=== PATIENT | female | born 1985 | race Caucasian/White ===

== ENCOUNTER → 2017-05-20 | Outpatient (CLI) | payer OTHER ==
[2017-05-20 10:29] LABS: Basophils % (A) 0 %; CH 28.7; CHCM 31.2; Eosinophils # (A) 0.4 k/uL (0-0.7); Eosinophils % (A) 5 %; HCT 38.2 % (34.0-46.0); HDW 2.22; HGB 11.9 gm/dL (11.4-16.0); Luc # (Auto) 0.17; Luc % (Auto) 2; Lymphocytes # (A) 1.4 k/uL (1.0-4.8); Lymphocytes % (A) 17 %; MCH 28.9 pg (25.0-35.0); MCHC 31.2 g/dL (31.0-37.0); MCV 92.5 fL (80.0-100.0); Monocytes # (A) 0.4 k/uL (0-1.0); Monocytes % (A) 4 %; Neutrophils # (A) 6.1 k/uL (1.3-7.7); Neutrophils % (A) 72 %; RBC 4.13 m/uL (3.80-5.40); RDW 13.1 % (11.5-15.5); WBC 8.5 k/uL (3.8-10.6); WBC (Perox) 8.95
[2017-05-20 10:34] LABS: INR 0.9 (<1.2); Prothrombin Time 9.6 sec (9.0-12.0)
[2017-05-20 10:44] LABS: Bilirubin, Delta 0.2 mg/dL (0.0-0.2); Total Bilirubin 0.3 mg/dL (0.2-1.3); Total Protein 6.9 g/dL (6.3-8.2)
--- NOTE | 2017-05-20 11:55 | US ---
EXAMINATION TYPE: US liver DATE OF EXAM: 05/20/2017 COMPARISON: 09/14/2009 CLINICAL HISTORY: B18.2 Chronic Hepatitis C. EXAM MEASUREMENTS: Liver Length: 19.1 cm Gallbladder Wall: Surgically absent cm CBD: 0.8 cm Right Kidney: 11.4 x 4.1 x 5.2 cm Pancreas: Obscured by bowel gas Liver: Heterogeneous in coarsened, enlarged Gallbladder: Surgically absent Evidence for sonographic Puentes's sign: No CBD: wnl for surgically absent gallbladder Right Kidney: No hydronephrosis or masses seen IMPRESSION: Coarsened heterogenous hepatic echotexture compatible with patient's underlying known hep atocellular disease. This limits evaluation for hepatic masses although no gross hepatic masses ident ified. Surveillance MRI could also be considered in this high-risk patient.
[2017-05-22 16:28] LABS: LOG HCV IU/mL 5.01 (<1.08)
== END | disposition home or self-care (01) ==
LOC: RADUSWWP 09:16
PROVIDERS: ATTEND Family Medicine
DX: B18.2 Chronic viral hepatitis C (principal)
CPT/HCPCS: 36415; 76705; 80076; 85025; 85610; 87522

== ENCOUNTER → 2017-06-23 | Outpatient (CLI) | payer OTHER | END | disposition home or self-care (01) | LOC: RADMRIMAIN 11:46 | PROVIDERS: ATTEND Physician Assistant | DX: Z53.9 Procedure and treatment not carried out, unspecified reason (principal) ==

== ENCOUNTER → 2017-10-08 | Outpatient (CLI) | payer OTHER ==
[2017-10-08 11:29] LABS: Blood Urea Nitrogen 19 mg/dL (7-17)
== END | disposition home or self-care (01) ==
LOC: LABWHC1 10:28
PROVIDERS: ATTEND Physician Assistant
DX: B18.2 Chronic viral hepatitis C (principal)
CPT/HCPCS: 36415; 82565; 84520; 87522

== ENCOUNTER → 2017-10-28 | Outpatient (CLI) | payer OTHER ==
[2017-10-28 15:24] LABS: Prothrombin Time 9.9 sec (9.0-12.0)
[2017-10-28 15:34] LABS: Albumin 3.8 g/dL (3.5-5.0); Total Bilirubin 0.4 mg/dL (0.2-1.3)
[2017-10-28 20:52] LABS: HIV AB P24 Non-Reactive (Non-Reactive); HIV P24 AG Non-Reactive (Non-Reactive)
[2017-10-29 13:51] LABS: Serum Amphetamine Negative; Serum Barbiturates Negative; Serum Benzodiazepine Negative; Serum Cocaine Negative; Serum Methadone Positive; Serum Opiates Negative; Serum Phencyclidine Negative; Serum Propoxyphene Negative; Serum THC (Cannabis) Negative
== END | disposition home or self-care (01) ==
LOC: LABWHC1 13:52
PROVIDERS: ATTEND Physician Assistant
DX: B18.2 Chronic viral hepatitis C (principal)
CPT/HCPCS: 36415; 80307; 82040; 82247; 85610; 87390

== ENCOUNTER → 2017-11-30 | Outpatient (CLI) | payer OTHER ==
[2017-11-30 10:21] LABS: Basophils % (A) 0 %; Eosinophils # (A) 0.2 k/uL (0-0.7); Eosinophils % (A) 3 %; HCT 37.3 % (34.0-46.0); HGB 11.9 gm/dL (11.4-16.0); Lymphocytes # (A) 1.3 k/uL (1.0-4.8); Lymphocytes % (A) 18 %; MCV 90.5 fL (80.0-100.0); Mean Platelet Volume 8.2; Monocytes # (A) 0.4 k/uL (0-1.0); Monocytes % (A) 6 %; Neutrophils # (A) 5.4 k/uL (1.3-7.7); Neutrophils % (A) 71 %; Platelet Count 188 k/uL (150-450); RBC 4.12 m/uL (3.80-5.40); RDW 13.4 % (11.5-15.5); WBC 7.6 k/uL (3.8-10.6)
[2017-11-30 10:39] LABS: ALT 63 U/L (9-52); AST 38 U/L (14-36); Albumin 3.9 g/dL (3.5-5.0); Alkaline Phosphatase 77 U/L (38-126); Anion Gap 13 mmol/L; Blood Urea Nitrogen 18 mg/dL (7-17); Calcium 9.2 mg/dL (8.4-10.2); Carbon Dioxide 24 mmol/L (22-30); Chloride 105 mmol/L (98-107); Glucose 99 mg/dL (74-99); Potassium 4.3 mmol/L (3.5-5.1); Sodium 142 mmol/L (137-145); Total Bilirubin 1.1 mg/dL (0.2-1.3); Total Protein 6.8 g/dL (6.3-8.2)
== END | disposition home or self-care (01) ==
LOC: LABWHC1 09:34
PROVIDERS: ATTEND Physician Assistant
DX: B19.20 Unspecified viral hepatitis C without hepatic coma (principal)
CPT/HCPCS: 36415; 80053; 85025

== ENCOUNTER 2017-12-31 10:16 | Observation (INO) | payer OTHER ==
[2017-12-31] MEDS ORDERED: KETOROLAC 30 MG/ML 1 ML VIAL IVP STA (10:55)
[2017-12-31] MEDS ORDERED: IPRATROPIUM-ALBUTEROL 3 ML NEB INHALATION STA (10:55)
[2017-12-31] MEDS ORDERED: ORPHENADRINE 30 MG/ML 2 ML VIAL IVP STA (10:55)
--- NOTE | 2017-12-31 11:00 | ED ---
URI HPI - General Source: patient, RN notes reviewed Mode of arrival: ambulatory Limitations: no limitations <Ever Waite - Last Filed: 12/31/17 13:05> <Tulio Jarrett - Last Filed: 12/31/17 13:39> - General Chief Complaint: Upper Respiratory Infection Stated Complaint: pneumonia dx from [facility] Time Seen by Provider: 12/31/17 10:50 - History of Present Illness Initial Comments: This is a 32-year-old female presents emergency Department chief complaint of cough congestion and back pain. Patient states that she was told she had pneumonia 2 days ago and was diagnosed at [facility]. She has taken her second dose of azithromycin today. States the pain in her back is worse with deep inspiration and she feels short of breath. Patient does admit that she is a former IV drug user and states that she has been clean for one year and is currently tapering off methadone. Patient denies any recent illicit drug use. Denies any current fever states that she has had subjective fevers. She also had some chills at home. Patient denies sore throat, headache , dizziness. Patient states the pain in her back is worse with movement. (Ever Waite) - Related Data Home Medications Medication Instructions Recorded Confirmed Acetaminophen Tab [Tylenol Tab] 500 mg PO Q4H PRN 12/31/17 12/31/17 Azithromycin [Zithromax Z-pack] See Taper PO DIRECTED 12/31/17 12/31/17 Ibuprofen [Motrin Ib] 800 mg PO Q4H PRN 12/31/17 12/31/17 Methadone [Dolophine] 5 mg PO DAILY 12/31/17 12/31/17 buPROPion HCL [Wellbutrin XL] 300 mg PO DAILY 12/31/17 12/31/17 Allergies Allergy/AdvReac Type Severity Reaction Status Date / Time No Known Allergies Allergy Verified 12/31/17 11:02 Review of Systems ROS Other: All systems not noted in ROS Statement are negative. <Ever Waite - Last Filed: 12/31/17 13:05> ROS Other: All systems not noted in ROS Statement are negative. <Tulio Jarrett - Last Filed: 12/31/17 13:39> ROS Statement: Those systems with pertinent positive or pertinent negative responses have been documented in the HPI. Past Medical History Past Medical History: No Reported History History of Any Multi-Drug Resistant Organisms: None Reported Past Surgical History: Appendectomy, Section, Cholecystectomy Past Psychological History: Depression Smoking Status: Never smoker Past Alcohol Use History: None Reported Past Drug Use History: None Reported, Heroin, Methamphetamine <Ever Waite - Last Filed: 12/31/17 13:05> General Exam Limitations: no limitations General appearance: alert, in no apparent distress Head exam: Present: atraumatic, normocephalic, normal inspection Eye exam: Present: normal appearance, PERRL, EOMI. Absent: scleral icterus, conjunctival injection, periorbital swelling ENT exam: Present: mucous membranes moist, TM's normal bilaterally, normal external ear exam. Absent: normal oropharynx (Few missing dentition noted) Neck exam: Present: normal inspection, full ROM. Absent: tenderness, meningismus, lymphadenopathy Respiratory exam: Present: wheezes, chest wall tenderness (Posterior aspect upper thoracic). Absent: normal lung sounds bilaterally, respiratory distress, rales, rhonchi, stridor Cardiovascular Exam: Present: regular rate, normal rhythm, normal heart sounds. Absent: systolic murmur, diastolic murmur, rubs, gallop, clicks Skin exam: Present: warm, dry, intact, normal color. Absent: rash <Ever Waite - Last Filed: 12/31/17 13:05> Course <Ever Waite - Last Filed: 12/31/17 13:05> <Tulio Jarrett - Last Filed: 12/31/17 13:39> Vital Signs 12/31/17 12/31/17 12/31/17 10:43 12:05 12:18 Temperature 98.2 F Pulse Rate 101 H 100 100 Respiratory 18 Rate Blood Pressure 121/69 O2 Sat by Pulse 96 Oximetry 12/31/17 12:19 Temperature Pulse Rate Respiratory 22 Rate Blood Pressure O2 Sat by Pulse Oximetry - Reevaluation(s) Reevaluation #1: 12/31/17 13:39 PA supervision I personally saw the patient examine the patient. I reviewed and agree with the PA findings including all diagnostic interpretations and treatment plans as written and less otherwise stated. A did discuss case with Dr. Underwood who is the covering physician. (Tulio Jarrett) Medical Decision Making - Lab Data Result diagrams: 12/31/17 11:30 12/31/17 11:30 <Ever Waite - Last Filed: 12/31/17 13:05> - Lab Data Result diagrams: 12/31/17 11:30 12/31/17 11:30 <Tulio Jarrett - Last Filed: 12/31/17 13:39> - Lab Data Lab Results 12/31/17 12/31/17 12/31/17 Range/Units 11:30 11:30 11:30 WBC 11.4 H (3.8-10.6) k/uL RBC 3.69 L (3.80-5.40) m/uL Hgb 10.7 L (11.4-16.0) gm/dL Hct 32.8 L (34.0-46.0) % MCV 89.1 (80.0-100.0) fL MCH 28.9 (25.0-35.0) pg MCHC 32.5 (31.0-37.0) g/dL RDW 13.0 (11.5-15.5) % Plt Count 203 (150-450) k/uL Neutrophils % 79 % Lymphocytes % 14 % Monocytes % 4 % Eosinophils % 2 % Basophils % 0 % Neutrophils # 9.0 H (1.3-7.7) k/uL Lymphocytes # 1.5 (1.0-4.8) k/uL Monocytes # 0.4 (0-1.0) k/uL Eosinophils # 0.3 (0-0.7) k/uL Basophils # 0.0 (0-0.2) k/uL D-Dimer 1.19 H (<0.60) mg/L FEU Sodium 139 (137-145) mmol/L Potassium 3.7 (3.5-5.1) mmol/L Chloride 103 (98-107) mmol/L Carbon Dioxide 24 (22-30) mmol/L Anion Gap 12 mmol/L BUN 12 (7-17) mg/dL Creatinine 0.64 (0.52-1.04) mg/dL Est GFR (CKD-EPI)AfAm >90 (>60 ml/min/1.73 sqM) Est GFR (CKD-EPI)NonAf >90 (>60 ml/min/1.73 sqM) Glucose 131 H (74-99) mg/dL Calcium 8.5 (8.4-10.2) mg/dL Total Bilirubin 0.3 (0.2-1.3) mg/dL AST 20 (14-36) U/L ALT 31 (9-52) U/L Alkaline Phosphatase 76 (38-126) U/L Total Protein 6.2 L (6.3-8.2) g/dL Albumin 3.2 L (3.5-5.0) g/dL Disposition <Ever Waite - Last Filed: 12/31/17 13:05> <Tulio Jarrett - Last Filed: 12/31/17 13:39> Clinical Impression: Multifocal pneumonia, Failure of outpatient treatment Disposition: ADMITTED IP TO THIS HOSP Condition: Stable Referrals: Ta Colon MD [Primary Care Provider] - 1-2 days
[2017-12-31 11:50] LABS: Basophils % (A) 0 %; Eosinophils # (A) 0.3 k/uL (0-0.7); Eosinophils % (A) 2 %; HCT 32.8 % (34.0-46.0); HGB 10.7 gm/dL (11.4-16.0); Lymphocytes # (A) 1.5 k/uL (1.0-4.8); Lymphocytes % (A) 14 %; MCH 28.9 pg (25.0-35.0); MCHC 32.5 g/dL (31.0-37.0); MCV 89.1 fL (80.0-100.0); Monocytes # (A) 0.4 k/uL (0-1.0); Monocytes % (A) 4 %; Neutrophils % (A) 79 %; Platelet Count 203 k/uL (150-450); RBC 3.69 m/uL (3.80-5.40); WBC 11.4 k/uL (3.8-10.6)
--- NOTE | 2017-12-31 12:01 | XR ---
EXAMINATION TYPE: XR chest 2V DATE OF EXAM: 12/31/2017 COMPARISON: None HISTORY: 32-year-old female with cough and pain TECHNIQUE: PA and lateral views FINDINGS: Heart normal size. Aorta and pulmonary vasculature within normal limits. Focal airspace opacity in th e posterior basilar left lower lobe. A trace pleural effusion may also be present. IMPRESSION: Focal airspace disease basilar left lower lobe. Findings suggest pneumonia with trace parapneumonic e ffusion.
[2017-12-31 12:03] LABS: ALT 31 U/L (9-52); AST 20 U/L (14-36); Albumin 3.2 g/dL (3.5-5.0); Alkaline Phosphatase 76 U/L (38-126); Anion Gap 12 mmol/L; Blood Urea Nitrogen 12 mg/dL (7-17); Calcium 8.5 mg/dL (8.4-10.2); Carbon Dioxide 24 mmol/L (22-30); Chloride 103 mmol/L (98-107); Glucose 131 mg/dL (74-99); Potassium 3.7 mmol/L (3.5-5.1); Sodium 139 mmol/L (137-145); Total Bilirubin 0.3 mg/dL (0.2-1.3); Total Protein 6.2 g/dL (6.3-8.2)
--- NOTE | 2017-12-31 12:51 | CT ---
EXAMINATION TYPE: CT angio chest DATE OF EXAM: 12/31/2017 COMPARISON: NONE HISTORY: Upper back pain with cough and shortness of breath CT DLP: 569.2 mGycm. Automated Exposure Control for Dose Reduction was Utilized. CONTRAST: CTA scan of the thorax is performed with IV Contrast, patient injected with 85 mL of Isovue 370, pulm onary embolism protocol. MIP Images are created on CT scanner and reviewed. FINDINGS: LUNGS: Multifocal consolidations are seen within the lingula and left lower lobe demonstrates air bro nchograms as well as to a lesser degree within the right middle lobe. Trace parapneumonic effusion is seen on the left. The lungs are grossly clear, there is no concerning parenchymal mass or nodule elle ntified. There is no pleural effusion or pneumothorax seen. The tracheobronchial tree is patent. MEDIASTINUM: There is suboptimal enhancement of the pulmonary artery and its branches, there is no CT evidence for central pulmonary embolism. There are no greater than 1 cm hilar or mediastinal lymph nodes. No cardiomegaly or pericardial effusion is seen. Within the superior anterior mediastinum th ere is patchy soft tissue attenuation favored to relate to residual fibrous. Prominent mediastinal ly mph nodes are noted measuring up to 9 mm in the right paratracheal space and 1.4 cm in the subcarinal space, possibly reactive given the lung findings. OTHER: Spleen is enlarged in anterior posterior dimension measuring 1.5 cm. Gallbladder surgically ab sent. Within the upper abdomen there is questioned central mesenteric adenopathy versus approximating loops of unopacified small bowel. Further evaluation with CT abdomen after administration of oral co ntrast is recommended. Gallbladder surgically absent.. IMPRESSION: 1. Suboptimal enhancement of the main pulmonary artery however no central pulmonary embolus is seen. Other findings are most compatible with multifocal pneumonia predominating within the left lower lobe but also seen within the lingula and right middle lobe with small left basilar parapneumonic effusio n and prominent mediastinal lymph nodes, likely reactive. 2. Splenomegaly and concern for central mesenteric adenopathy although soft tissue density could rela te to unopacified loops of small bowel and therefore further evaluation with CT abdomen after the adm inistration oral contrast is recommended on a nonemergent basis. The superior mediastinal probable th ymic tissue could be reevaluated if adenopathy is confirmed identified within the abdomen.
[2017-12-31] MEDS ORDERED: cefTRIAXone IN SWFI 1,000 MG/10 ML SYRINGE IVP STA (13:06)
[2017-12-31] MEDS ORDERED: IPRATROPIUM-ALBUTEROL 3 ML NEB INHALATION PRN ×2 (13:06→14:44)
[2017-12-31] MEDS ORDERED: PNEUMONIA PROTOCOL UTILIZED 1 EACH MISC PO PRN (13:06)
[2017-12-31] MEDS ORDERED: AZITHROMYCIN 500 MG in DEXTROSE 5% IN WATER 250 ML IVPB SCH ×2 (14:00)
[2017-12-31] MEDS ORDERED: AZITHROMYCIN 500 MG in SODIUM CHLORIDE 0.9% 250 ML IVPB SCH (14:00)
--- NOTE | 2017-12-31 14:43 | P.CNPUL ---
History of Present Illness Consult date: 12/31/17 Reason for consult: dyspnea, cough, chest pain, pneumonia, abnormal CXR/CT Chief complaint: Shortness of breath, chest pain, fever, pneumonia History of present illness: Consult dated 12/31/2017 This is a 32-year-old female who presents to the emergency department with complaints of a couple days worth of cough congestion shortness of breath. She has pleuritic-type chest pain in the left back and left shoulder area. She's coughing producing some yellow green phlegm. Also had a fever. Very short of breath. The patient apparently was seen recently and briefly at the emergency room at [facility]. Anyway, apparently she was given some antibiotics and sent on her weight. She states that they thought she was here primarily for drug-seeking behavior. She does have a history of drug abuse and currently is undergoing at the proximal location at [place]. Anyway, she states that the chest pain shortness breath chest congestion coughing and fever and phlegm production got so bad that she had to stop back into the emergency room to be evaluated here. Here she is admitted with a diagnosis of bilateral pneumonia predominantly left-sided breast on the right side as well. The patient is having pleuritic in nature as pneumonia abuts the pleural surface. She has no other significant medical history other than drug abuse. She's had appendectomy and cholecystectomy. Her home medications included primarily Tylenol Zithromax in the form of Z-Thaddeus Motrin methadone and Wellbutrin XL. She has no ALLERGIES. Review of Systems A 12 point review of systems is positive for shortness of breath chest congestion cough pleuritic chest pain phlegm production and fever. Past Medical History Past Medical History: No Reported History History of Any Multi-Drug Resistant Organisms: None Reported Past Surgical History: Appendectomy, Section, Cholecystectomy Past Psychological History: Depression Smoking Status: Never smoker Past Alcohol Use History: None Reported Past Drug Use History: None Reported, Heroin, Methamphetamine Medications and Allergies Home Medications Medication Instructions Recorded Confirmed Type Acetaminophen Tab [Tylenol Tab] 500 mg PO Q4H PRN 12/31/17 12/31/17 History Azithromycin [Zithromax Z-pack] See Taper PO DIRECTED 12/31/17 12/31/17 History Ibuprofen [Motrin Ib] 800 mg PO Q4H PRN 12/31/17 12/31/17 History Methadone [Dolophine] 5 mg PO DAILY 12/31/17 12/31/17 History buPROPion HCL [Wellbutrin XL] 300 mg PO DAILY 12/31/17 12/31/17 History Allergies Allergy/AdvReac Type Severity Reaction Status Date / Time No Known Allergies Allergy Verified 12/31/17 14:19 Physical Exam Osteopathic Statement: *. No significant issues noted on an osteopathic structural exam other than those noted in the History and Physical/Consult. Vitals: Vital Signs Temp Pulse Resp BP Pulse Ox 12/31/17 13:59 98.1 F 103 H 20 126/77 97 12/31/17 12:19 22 12/31/17 12:18 100 12/31/17 12:05 100 12/31/17 10:43 98.2 F 101 H 18 121/69 96 Intake and Output 12/30/17 12/31/17 12/31/17 22:59 06:59 14:59 Other: Weight 117.934 kg No acute distress, oriented 3. HEENT examination is grossly unremarkable. Mucous membranes are moist. No oral lesions. Neck supple. Full range of motion. No adenopathy thyromegaly or neck vein distention. Cardiovascular examination reveals regular rhythm rate. S1-S2 normal. No S3 or S4. No discernible murmur noted. Lungs reveal a few scattered rhonchi. Breath sounds are actually quite good. No wheezes. No crackles. Breath sounds equal bilaterally. Abdomen soft bowel sounds are heard. No masses or tenderness. Extremities are intact. No cyanosis clubbing or edema. Skin is without rash or lesion. Neurologic examination is brief but nonfocal. Results - Laboratory Findings CBC and BMP: 12/31/17 11:30 12/31/17 11:30 PT/INR, D-dimer D-Dimer 1.19 mg/L FEU (<0.60) H 12/31/17 11:30 Abnormal lab findings: Abnormal Labs 12/31/17 12/31/17 12/31/17 11:30 11:30 11:30 WBC 11.4 H RBC 3.69 L Hgb 10.7 L Hct 32.8 L Neutrophils # 9.0 H D-Dimer 1.19 H Glucose 131 H Total Protein 6.2 L Albumin 3.2 L - Diagnostic Findings Chest x-ray: report reviewed, image reviewed CT scan - chest: report reviewed (Chest x-ray labs medications and computed tomography scan are all reviewed.), image reviewed Assessment and Plan Assessment: Assessment Bilateral pneumonia left greater than right, community-acquired History of drug abuse, currently undergoing detoxification at [place] History of depression Plan: Plan dated 12/31/2017 The patient should be placed on breathing treatments the form of DuoNeb 4 times a day and when necessary. She does not need any steroids. She's also get standard community-acquired pneumonia antibiotics in form of Rocephin and Zithromax. Additional recommendations and suggestions are forthcoming. We'll follow closely. Repeat x-ray in a day or 2 Time with Patient: Greater than 30
[2017-12-31] MEDS: IPRATROPIUM-ALBUTEROL 3 ML NEB INHALATION SCH ×2 (16:55→21:11)
[2017-12-31] MEDS: KETOROLAC 30 MG/ML 1 ML VIAL IVP PRN (17:34)
[2017-12-31] MEDS ORDERED: ACETAMINOPHEN TAB 500 MG TAB PO PRN (22:09)
[2017-12-31] MEDS ORDERED: IBUPROFEN 800 MG TAB PO PRN (22:09)
--- NOTE | 2017-12-31 23:02 | HP ---
HISTORY AND PHYSICAL DATE OF ADMISSION: 12/31/2017 PRESENTING COMPLAINT: Cough, sputum. HISTORY OF PRESENTING COMPLAINT: This is a pleasant 32-year-old patient of Dr. Colon. Patient has a diagnosis of hepatitis C and is supposed to start treatment by [facility] out of Dr. Munoz's office. She also has takes medicine for depression. Patient used to be an IV heroin user and did methamphetamines; stopped in 2017. Patient then went to a methadone clinic and is down to 5 mg. Patient's last dose of methadone is actually tomorrow. Patient also stopped smoking about 6 months ago. Patient presents with 5 days of increasing cough, sputum production which is green-yellow in color, fever and chills. She feels rather sick, tired and rundown. Chest x-ray and CT scan in the ER did show pneumonia, for which patient was started on IV ceftriaxone and Zithromax. Patient's two kids at home were also sick, as well as her . Patient was seen by Dr. Martin, who started her also on bronchodilators. REVIEW OF SYSTEMS: CONSTITUTIONAL: Tired, febrile, chills. HEENT: As above. RESPIRATORY: As above. CARDIOVASCULAR: None. GASTROINTESTINAL: None. GENITOURINARY: None. MUSCULOSKELETAL: None. DERMATOLOGICAL: Tattoos. HEMATOLOGICAL: None. LYMPHATICS: None. PSYCHIATRY: Depression and anxiety, controlled. NEUROLOGICAL: None. PAST MEDICAL HISTORY: 1. Hepatitis C from IV drug use. 2. Depression. PAST SURGICAL HISTORY: 1. Appendectomy. 2. . 3. Cholecystectomy. SOCIAL HISTORY: Patient lives with her fiance and 3 kids. Stopped smoking about 6 months ago; smoked for about 15 years. Stopped doing IV heroin last year and also methamphetamine last year. FAMILY HISTORY: COPD, cervical cancer. HOME MEDICATIONS: 1. Wellbutrin XL 300 mg a day. 2. Methadone 5 mg a day, to be stopped tomorrow. 3. Motrin 800 mg q.8 p.r.n. 4. Zithromax. 5. Tylenol 500 mg q.4 p.r.n. ALLERGIES: NONE. PHYSICAL EXAMINATION: VITAL SIGNS ON PRESENTATION: Temperature 98.2, pulse 101, respiration 18, blood pressure 121/69, pulse ox 96% on room air. GENERAL APPEARANCE: Well built, BMI 38.4. Lying in bed. Bouts of coughing. EYES: Pupils equal. Conjunctivae normal. HEENT: External appearance of nose and ears normal. Oral cavity normal. NECK: JVD not raised. Mass not palpable. RESPIRATORY: Effort increased. LUNGS: Some expiratory wheezing. CARDIOVASCULAR: First and second sounds normal. No edema. ABDOMEN: Soft, nontender. Liver and spleen not palpable. LYMPHATIC: No lymph node palpable in neck or axillae. PSYCHIATRY: Alert and oriented x3. Mood and affect normal. NEUROLOGICAL: Pupils equal. Cranial nerves grossly intact. Power and sensation grossly intact. DERMATOLOGICAL: Multiple tattoos. INVESTIGATIONS: White count 11.4, hemoglobin 10.7. Potassium 3.7. BUN and creatinine are normal. Chest x-ray shows some infiltrate. Chest CTA showing evidence of multifocal pneumonia and splenomegaly. ASSESSMENT: 1. Bilateral multifocal pneumonia. 2. Acute bronchospasm in a patient who stopped smoking about 6 months ago. 3. Obesity with body mass index of 38.4. 4. Depression not otherwise specified. 5. Next hepatitis C. The patient is going to start anti-retroviral shortly under the auspices of [facility]. PLAN: The patient is on IV ceftriaxone, Zithromax and DuoNeb. Home medication will be resumed. Methadone will now be discontinued. Will give Lovenox for DVT prophylaxis. The patient should see a dietitian for weight loss measures. Will also give IV fluids. Patient is rather tired and rundown. Care was discussed with the patient. Questions were answered. MMPORFIRIOL / TOMERN: [id number] /
[2017-12-31] MEDS: LACTATED RINGERS 1,000 ML IV SCH (23:59)
[2018-01-01 06:22] LABS: Basophils % (A) 0 %; Eosinophils # (A) 0.2 k/uL (0-0.7); Eosinophils % (A) 3 %; HCT 32.7 % (34.0-46.0); HGB 10.3 gm/dL (11.4-16.0); Lymphocytes # (A) 1.3 k/uL (1.0-4.8); Lymphocytes % (A) 16 %; MCH 28.4 pg (25.0-35.0); MCHC 31.6 g/dL (31.0-37.0); Mean Platelet Volume 7.5; Monocytes # (A) 0.4 k/uL (0-1.0); Monocytes % (A) 5 %; Neutrophils # (A) 6.2 k/uL (1.3-7.7); Neutrophils % (A) 75 %; Platelet Count 235 k/uL (150-450); RBC 3.63 m/uL (3.80-5.40); RDW 13.2 % (11.5-15.5); WBC 8.2 k/uL (3.8-10.6)
[2018-01-01 06:29] LABS: Anion Gap 11 mmol/L; Blood Urea Nitrogen 12 mg/dL (7-17); Calcium 8.4 mg/dL (8.4-10.2); Carbon Dioxide 26 mmol/L (22-30); Chloride 102 mmol/L (98-107); Glucose 86 mg/dL (74-99); Potassium 4.6 mmol/L (3.5-5.1); Sodium 139 mmol/L (137-145)
[2018-01-01] MEDS: LACTATED RINGERS 1,000 ML IV SCH ×2 (07:05→17:10)
[2018-01-01] MEDS: KETOROLAC 30 MG/ML 1 ML VIAL IVP PRN ×3 (07:40→21:54)
--- NOTE | 2018-01-01 07:58 | XR ---
EXAMINATION TYPE: XR chest 2V DATE OF EXAM: 01/01/2018 COMPARISON: Prior chest x-ray 12/31/2017 HISTORY: Pneumonia TECHNIQUE: Frontal and lateral views of the chest are obtained. FINDINGS: Airspace disease persists in the left lower lobe. No evident pneumothorax or sizable effus ion. Heart size is stable. IMPRESSION: Findings compatible with patient's history of left lower lobe, lingular pneumonia.
[2018-01-01] MEDS ORDERED: AZITHROMYCIN 500 MG in DEXTROSE 5% IN WATER 250 ML IVPB SCH ×2 (09:00)
[2018-01-01] MEDS: IPRATROPIUM-ALBUTEROL 3 ML NEB INHALATION SCH ×4 (09:17→19:06)
[2018-01-01] MEDS: buPROPion XL 300 MG TAB.ER.24H PO SCH (09:26)
[2018-01-01] MEDS: cefTRIAXone IN SWFI 1,000 MG/10 ML SYRINGE IVP SCH (09:28)
[2018-01-01] MEDS: ENOXAPARIN 40 MG/0.4 ML SYRINGE SQ SCH (09:28)
--- NOTE | 2018-01-01 12:03 | P.PN ---
Subjective Progress Note Date: 01/01/18 Principal diagnosis: Bilateral pneumonia left greater than right, community-acquired Consult dated 12/31/2017 This is a 32-year-old female who presents to the emergency department with complaints of a couple days worth of cough congestion shortness of breath. She has pleuritic-type chest pain in the left back and left shoulder area. She's coughing producing some yellow green phlegm. Also had a fever. Very short of breath. The patient apparently was seen recently and briefly at the emergency room at [facility]. Anyway, apparently she was given some antibiotics and sent on her weight. She states that they thought she was here primarily for drug-seeking behavior. She does have a history of drug abuse and currently is undergoing at the proximal location at [place]. Anyway, she states that the chest pain shortness breath chest congestion coughing and fever and phlegm production got so bad that she had to stop back into the emergency room to be evaluated here. Here she is admitted with a diagnosis of bilateral pneumonia predominantly left-sided breast on the right side as well. The patient is having pleuritic in nature as pneumonia abuts the pleural surface. She has no other significant medical history other than drug abuse. She's had appendectomy and cholecystectomy. Her home medications included primarily Tylenol Zithromax in the form of Z-Thaddeus Motrin methadone and Wellbutrin XL. She has no ALLERGIES. Progress note dated 01/01/2018 The patient is seen again today in follow-up on the pediatric unit. She is currently resting quite comfortably in bed. She is breathing quite a bit easier today as compared to yesterday. The left-sided chest pain on inhalation has improved as well. She is currently afebrile. Maintaining good O2 saturations in the upper 90s on room air. Hemodynamically stable. White count 8.2. She remains on antibiotics in the form of ceftriaxone and azithromycin. Objective - Vital Signs Vital signs: Vital Signs Temp 97.8 F 01/01/18 10:24 Pulse 72 01/01/18 10:24 Resp 16 01/01/18 10:24 BP 102/67 01/01/18 10:24 Pulse Ox 98 01/01/18 10:24 Intake & Output 12/31/17 01/01/18 01/01/18 18:59 06:59 18:59 Intake Total 800 Balance 800 Weight 117.934 kg Intake: Oral 800 Other: Voiding Method Toilet # Voids 1 1 1 - Exam No acute distress, oriented 3. HEENT examination is grossly unremarkable. Mucous membranes are moist. No oral lesions. Neck supple. Full range of motion. No adenopathy thyromegaly or neck vein distention. Cardiovascular examination reveals regular rhythm rate. S1-S2 normal. No S3 or S4. No discernible murmur noted. Lungs reveal a few scattered rhonchi. Breath sounds are actually quite good. No wheezes. No crackles. Breath sounds equal bilaterally. Abdomen soft bowel sounds are heard. No masses or tenderness. Extremities are intact. No cyanosis clubbing or edema. Skin is without rash or lesion. Neurologic examination is brief but nonfocal. - Labs CBC & Chem 7: 01/01/18 05:53 01/01/18 05:53 Labs: Abnormal Lab Results - Last 24 Hours (Table) 12/31/17 12/31/17 12/31/17 Range/Units 11:30 11:30 11:30 WBC 11.4 H (3.8-10.6) k/uL RBC 3.69 L (3.80-5.40) m/uL Hgb 10.7 L (11.4-16.0) gm/dL Hct 32.8 L (34.0-46.0) % Neutrophils # 9.0 H (1.3-7.7) k/uL D-Dimer 1.19 H (<0.60) mg/L FEU Glucose 131 H (74-99) mg/dL Total Protein 6.2 L (6.3-8.2) g/dL Albumin 3.2 L (3.5-5.0) g/dL 01/01/18 Range/Units 05:53 WBC (3.8-10.6) k/uL RBC 3.63 L (3.80-5.40) m/uL Hgb 10.3 L (11.4-16.0) gm/dL Hct 32.7 L (34.0-46.0) % Neutrophils # (1.3-7.7) k/uL D-Dimer (<0.60) mg/L FEU Glucose (74-99) mg/dL Total Protein (6.3-8.2) g/dL Albumin (3.5-5.0) g/dL Assessment and Plan Assessment: Assessment Bilateral pneumonia left greater than right, community-acquired History of drug abuse, currently undergoing detoxification at [place] History of depression Plan The patient was seen and evaluated by Dr. Martin. She is improved today as compared to yesterday. We'll continue with the current treatment plan. We'll repeat her chest x-ray in the a.m. Probable discharge in the a.m. as well. Will continue to follow. I, the cosigning physician, performed a history & physical examination of the patient. Lungs sounds with few scattered rhonchi more so on the left. Maintaining good O2 saturations in the 90s on room air. I discussed the assessment and plan of care with my nurse practitioner, Miesha Ceja. I attest to the above note as dictated by her.
--- NOTE | 2018-01-01 22:44 | PN ---
PROGRESS NOTE DATE OF SERVICE: 01/01/2018. PRESENTING COMPLAINT: Cough. INTERVAL HISTORY: This patient was admitted with bilateral pneumonia. Breathing is a bit better. Has a cough, still bringing up some sputum. Appetite is getting better. Some pain when she takes a deep breath. REVIEW OF SYSTEMS: Done for constitutional, cardiovascular, GI, pulmonary; relevant findings as above. CURRENT MEDICATIONS: Reviewed, that include Zithromax and ceftriaxone. PHYSICAL EXAMINATION: Temperature 97, pulse 96, respirations 16, blood pressure 109/66, pulse ox 97% on room air. GENERAL APPEARANCE: Sitting up, awake. EYES: Pupils equal. Conjunctivae normal. HEENT: External appearance of nose and ears normal. Oral cavity normal. NECK: JVD not raised. Mass not palpable. Respiratory effort normal. LUNGS: Improved air entry, decreased wheezing. CARDIOVASCULAR: 1st and 2nd sounds normal. No edema. ABDOMEN: Soft, nontender. Liver and spleen not palpable. PSYCHIATRY: Alert and oriented x3. Mood and affect normal. INVESTIGATIONS: White count 8.2, hemoglobin 10.3. Chest x-ray shows infiltrate. ASSESSMENT: 1. Bilateral multifocal pneumonia with significant clinical improvement. 2. Acute bronchospasm. The patient stopped smoking about 6 months ago. 3. Obesity, BMI 38.4. 4. Depression, not otherwise specified. 5. Hepatitis C. The patient will be starting his anti-retroviral shortly. 6. Normocytic anemia, cause unknown. PLAN: Patient is clinically doing much better. Continue the current antibiotics. The patient is encouraged to ambulate, to use IR. Will DC patient's IV fluids as appetite is getting better. MMODL / IJN: [id number] /
[2018-01-02] MEDS: LACTATED RINGERS 1,000 ML IV SCH ×2 (01:45→08:52)
[2018-01-02] MEDS: KETOROLAC 30 MG/ML 1 ML VIAL IVP PRN ×2 (05:27→12:32)
[2018-01-02 06:32] VITALS: RESP 18
--- NOTE | 2018-01-02 06:59 | XR ---
EXAMINATION TYPE: XR chest 1V portable DATE OF EXAM: 01/02/2018 HISTORY: Pneumonia. REFERENCE: Previous study dated 01/01/2018. FINDINGS: The study is quite lordotic. The heart projects as enlarged. There is mild vascular congest ion. There is left basilar airspace disease. This appears unchanged from previous. I suspect a left e ffusion. IMPRESSION: ALLOWING FOR TECHNIQUE, I SEE NO DEFINITE INTERVAL CHANGE IN THE APPEARANCE OF THE CHEST.
[2018-01-02 07:28] LABS: Anion Gap 8 mmol/L; Blood Urea Nitrogen 9 mg/dL (7-17); Calcium 8.5 mg/dL (8.4-10.2); Carbon Dioxide 27 mmol/L (22-30); Chloride 106 mmol/L (98-107); Glucose 88 mg/dL (74-99); Potassium 4.7 mmol/L (3.5-5.1); Sodium 141 mmol/L (137-145)
[2018-01-02] MEDS: buPROPion XL 300 MG TAB.ER.24H PO SCH (08:44)
[2018-01-02] MEDS: ENOXAPARIN 40 MG/0.4 ML SYRINGE SQ SCH (08:44)
[2018-01-02] MEDS: cefTRIAXone IN SWFI 1,000 MG/10 ML SYRINGE IVP SCH (08:44)
[2018-01-02] MEDS ORDERED: AZITHROMYCIN 500 MG TAB PO SCH (09:00)
[2018-01-02] MEDS: IPRATROPIUM-ALBUTEROL 3 ML NEB INHALATION SCH ×2 (09:07→11:13)
--- NOTE | 2018-01-02 10:02 | P.PN ---
Subjective Progress Note Date: 01/02/18 Principal diagnosis: Bilateral pneumonia left greater than right, community-acquired Consult dated 12/31/2017 This is a 32-year-old female who presents to the emergency department with complaints of a couple days worth of cough congestion shortness of breath. She has pleuritic-type chest pain in the left back and left shoulder area. She's coughing producing some yellow green phlegm. Also had a fever. Very short of breath. The patient apparently was seen recently and briefly at the emergency room at [facility]. Anyway, apparently she was given some antibiotics and sent on her weight. She states that they thought she was here primarily for drug-seeking behavior. She does have a history of drug abuse and currently is undergoing at the proximal location at [place]. Anyway, she states that the chest pain shortness breath chest congestion coughing and fever and phlegm production got so bad that she had to stop back into the emergency room to be evaluated here. Here she is admitted with a diagnosis of bilateral pneumonia predominantly left-sided breast on the right side as well. The patient is having pleuritic in nature as pneumonia abuts the pleural surface. She has no other significant medical history other than drug abuse. She's had appendectomy and cholecystectomy. Her home medications included primarily Tylenol Zithromax in the form of Z-Thaddeus Motrin methadone and Wellbutrin XL. She has no ALLERGIES. Progress note dated 01/01/2018 The patient is seen again today in follow-up on the pediatric unit. She is currently resting quite comfortably in bed. She is breathing quite a bit easier today as compared to yesterday. The left-sided chest pain on inhalation has improved as well. She is currently afebrile. Maintaining good O2 saturations in the upper 90s on room air. Hemodynamically stable. White count 8.2. She remains on antibiotics in the form of ceftriaxone and azithromycin. Progress note dated 01/02/2018 Patient is seen again today in follow-up on the pediatric unit. She is currently sitting up in bed. She is awake and alert in no acute distress. She is breathing nearly back to her baseline. Continuing to maintain good O2 saturations in the upper 90s on room air. No worsening cough or congestion. She is anxious to go home. Blood culture reveals no growth. Objective - Vital Signs Vital signs: Vital Signs Temp 97.6 F 01/02/18 06:31 Pulse 78 01/02/18 09:17 Resp 18 01/02/18 06:31 BP 110/75 01/02/18 06:31 Pulse Ox 95 01/02/18 06:31 Intake & Output 01/01/18 01/02/18 01/02/18 18:59 06:59 18:59 Intake Total 1000 Balance 1000 Intake: Oral 1000 Other: Voiding Method Toilet # Voids 1 1 - Exam No acute distress, oriented 3. HEENT examination is grossly unremarkable. Mucous membranes are moist. No oral lesions. Neck supple. Full range of motion. No adenopathy thyromegaly or neck vein distention. Cardiovascular examination reveals regular rhythm rate. S1-S2 normal. No S3 or S4. No discernible murmur noted. Breath sounds are actually quite good. No wheezes. No crackles. Breath sounds equal bilaterally. Abdomen soft bowel sounds are heard. No masses or tenderness. Extremities are intact. No cyanosis clubbing or edema. Skin is without rash or lesion. Neurologic examination is brief but nonfocal. - Labs CBC & Chem 7: 01/01/18 05:53 01/02/18 07:03 Labs: Microbiology - Last 24 Hours (Table) 12/31/17 13:20 Blood Culture - Preliminary Blood No Growth after 24 hours Assessment and Plan Assessment: Assessment Bilateral pneumonia left greater than right, community-acquired History of drug abuse, currently undergoing detoxification at [place] History of depression Plan The patient was seen and evaluated by Dr. Martin. She is cleared for discharge from the pulmonary standpoint. Complete her course of antibiotics in the form of azithromycin. She should follow-up in our office in 1-2 weeks' time. We'll repeat a chest x-ray done. She is however encouraged to call sooner with any recurrence of symptoms or other questions or concerns. I, the cosigning physician, performed a history & physical examination of the patient. Lungs sounds with few scattered rhonchi more so on the left. Maintaining good O2 saturations in the 90s on room air. I discussed the assessment and plan of care with my nurse practitioner, Miesha Ceja. I attest to the above note as dictated by her.
[2018-01-02 12:41] VITALS: BP 101/68; PULSE 102; TEMP 98.2
--- NOTE | 2018-01-03 23:23 | DS ---
DISCHARGE SUMMARY DATE OF ADMISSION: 12/31/2017. DATE OF DISCHARGE: 01/02/2018. FINAL DIAGNOSES: 1. Bilateral multifocal pneumonia. 2. Acute bronchospasm. 3. Obesity BMI 38.4. 4. Depression, not otherwise specified. 5. Hepatitis C. The patient will be starting anti-retroviral shortly. 6. Normocytic anemia, cause unknown. HOSPITAL COURSE: This patient presented with bilateral pneumonia. Responded well to antibiotics. Much improved by the time of discharge. Afebrile. The patient did use to use IV heroin and methamphetamine. The patient was in a methadone clinic and the patient finished the last dose of methadone when she was admitted. On exam, lungs improved air entry. The patient is tolerating a diet, up and about. CONSULTATION: Dr. Martin from Pulmonary. Chest CT negative for PE. DISCHARGE MEDICATIONS: 1. Tylenol 500 mg q.4h p.r.n. 2. Wellbutrin XL 300 mg p.o. daily. 3. Ventolin HFA 1-2 puffs q.6h p.r.n. 4. Ceftin 500 mg p.o. b.i.d. 10 tablets. 5. Motrin 800 mg q8 p.o. p.r.n. 6. Atrovent HFA 2 puffs q.i.d. 7. Mucinex 200 mg p.o. q.12 14 tablets. 8. Prednisone taper. Follow up with Dr. Colon in 3 days. BRYAN / TOMERN: [id number] /
== END 2018-01-02 15:35 | disposition home or self-care (01) ==
LOC: EC 10:16 → 6PED 13:38 → INTOOBSV 13:38 → UNDODISIN 01-02 15:35
PROVIDERS: ADMIT Hospitalist; ATTEND Hospitalist
DX: J18.9 Pneumonia, unspecified organism (principal); B19.20 Unspecified viral hepatitis C without hepatic coma; J98.01 Acute bronchospasm; D64.9 Anemia, unspecified; F11.21 Opioid dependence, in remission; F32.9 Major depressive disorder, single episode, unspecified; F41.9 Anxiety disorder, unspecified; E66.9 Obesity, unspecified; Z68.38 Body mass index [BMI] 38.0-38.9, adult; Z79.899 Other long term (current) drug therapy; Z90.49 Acquired absence of other specified parts of digestive tract; Z87.891 Personal history of nicotine dependence; Z90.89 Acquired absence of other organs; Z82.5 Family history of asthma and other chronic lower respiratory diseases; Z80.49 Family history of malignant neoplasm of other genital organs
CPT/HCPCS: 96372 ×2; 96376 ×3; 96374; 96375; 99285; 36415; 94640 ×6; 85379; 80053; 80048 ×2; 85025 ×2; 87040; 71045; 71046 ×2; 71275; G0378 ×3; J2360; J0456; J1650 ×2; J0696 ×3; J1885 ×3; Q9967

== ENCOUNTER 2021-01-26 16:55 | Emergency (ER) | payer OTHER ==
[2021-01-26 16:59] VITALS: BP 116/74; PULSE 102; RESP 20; TEMP 99
[2021-01-26] MEDS: LIDOCAINE 1%-EPI 1:100,000 20 ML VIAL SQ STA (17:07)
[2021-01-26] MEDS ORDERED: SULFAMETH-TMP DS STARTER PACK 2 TAB BTL PO STA (17:16)
--- NOTE | 2021-01-26 17:20 | ED ---
Skin/Abscess/FB HPI - General Source: patient Mode of arrival: ambulatory Limitations: no limitations <Artemio Webb - Last Filed: 01/26/21 17:16> <Diana Ryan - Last Filed: 01/27/21 17:02> - General Chief complaint: Skin/Abscess/Foreign Body Stated complaint: Boil in armpit Time Seen by Provider: 01/26/21 16:59 - History of Present Illness Initial comments: 35-year-old female with history of abscess present to emergency Department with a chief complaint of a boil on the right armpit. Patient reports a starter last 2 days with gradual increase in severity in size. She reports that she was able to remove some yellow discharge that she was attempted to squeeze it. She does have history of MRSA has taken Bactrim which worked well before. She is known to get abscesses in the right armpit. She denies any fevers or chills. States it is uncomfortable whenever she is moving around. States she attempted not to use any deodorants in the region. (Artemio Webb) - Related Data Home Medications Medication Instructions Recorded Confirmed Acetaminophen Tab [Tylenol] 500 mg PO Q4H PRN 12/31/17 12/31/17 buPROPion HCL [Wellbutrin XL] 300 mg PO DAILY 12/31/17 12/31/17 Previous Rx's Medication Instructions Recorded Albuterol Inhaler (Mhu) [Ventolin 1 - 2 puff INHALATION RT-Q6H PRN 01/02/18 Hfa Inhaler (Mhu)] #1 inhaler Cefuroxime Axetil [Ceftin] 500 mg PO BID #10 tab 01/02/18 Ibuprofen [Motrin Ib] 800 mg PO Q8H PRN #0 01/02/18 Ipratropium [place] [Atrovent Hfa] 2 puff INHALATION QID #1 inhaler 01/02/18 guaiFENesin [Mucinex] 1,200 mg PO Q12HR #14 tablet.er 01/02/18 predniSONE 10 mg PO DAILY #30 tab 01/02/18 Sulfamethox-Tmp 800-160Mg [Bactrim 1 each PO Q12HR #20 tab 01/26/21 Ds] Allergies Allergy/AdvReac Type Severity Reaction Status Date / Time No Known Allergies Allergy Verified 01/26/21 16:59 Review of Systems ROS Other: All systems not noted in ROS Statement are negative. <Artemio Webb - Last Filed: 01/26/21 17:16> ROS Other: All systems not noted in ROS Statement are negative. <Diana Ryan - Last Filed: 01/27/21 17:02> ROS Statement: Those systems with pertinent positive or pertinent negative responses have been documented in the HPI. Past Medical History Past Medical History: Liver Disease Additional Past Medical History / Comment(s): hep C History of Any Multi-Drug Resistant Organisms: None Reported Past Surgical History: Appendectomy, Section, Cholecystectomy Past Psychological History: Depression Past Alcohol Use History: None Reported Past Drug Use History: None Reported, Heroin, Methamphetamine - Past Family History Mother Family Medical History: Cancer, COPD, Hypertension Additional Family Medical History / Comment(s): CERVICAL CANCER Father Family Medical History: COPD, Hypertension <Artemio Webb - Last Filed: 01/26/21 17:16> General Exam Limitations: no limitations General appearance: alert, in no apparent distress, obese Head exam: Present: atraumatic, normocephalic, normal inspection Eye exam: Present: normal appearance, PERRL, EOMI Pupils: Present: normal accommodation ENT exam: Present: normal exam, normal oropharynx, mucous membranes moist Neck exam: Present: normal inspection, full ROM. Absent: tenderness Respiratory exam: Present: normal lung sounds bilaterally. Absent: respiratory distress, wheezes, rales, rhonchi, stridor Cardiovascular Exam: Present: regular rate, normal rhythm, normal heart sounds. Absent: systolic murmur Extremities exam: Present: full ROM, tenderness, normal capillary refill. Absent: normal inspection (Abscess on the right exile up. No discharge noted. Flatulent but no induration.), pedal edema, joint swelling Back exam: Present: normal inspection, full ROM. Absent: tenderness Neurological exam: Present: alert, oriented X3 Psychiatric exam: Present: normal affect, normal mood Skin exam: Present: warm, dry, intact, normal color <Artemio Webb - Last Filed: 01/26/21 17:16> Course Vital Signs 01/26/21 01/26/21 16:57 17:31 Temperature 99.0 F Pulse Rate 102 H Respiratory 20 20 Rate Blood Pressure 116/74 O2 Sat by Pulse 99 95 Oximetry Procedures - Incision & Drainage Consent Obtained: verbal consent Indication: Abscess Site: other (Right axilla) Size (cm): 3 Anesthetic Used: lidocaine 1%, with epi Amount (mLs): 3 I&D Cleaning Method: Alcohol Wipe Sterile Field Used?: No Scalpel Used: #11 Needle Aspiration Performed?: No Irrigation Performed?: No I&D Drainage Obtained: Pus, Blood Culture Obtained?: No Complications: pain, bleeding Patient Tolerated Procedure: well, no complications <Artemio Webb - Last Filed: 01/26/21 17:16> Medical Decision Making <Artemio Webb - Last Filed: 01/26/21 17:16> <Diana Ryan - Last Filed: 01/27/21 17:02> - Medical Decision Making 35-year-old female with history of abscesses presents emergency Department with a chief complaint of an abscess. On physical examination, was able to detect an abscess in the right axilla. We'll start the patient on Bactrim. Incision and drainage performed with approximately 7 mL of purulent discharge removed. No packing was applied. Patient advised to apply warm compresses multiple times per day. Return parameters were thoroughly discussed with patient was understanding and agreeable. Case discussed with physician. (Artemio Webb) I was available for consultation in the emergency department. The history and physical exam were done by the midlevel provider. I was consulted for this patients care. I reviewed the case with the midlevel provider and based on their presentation of the patient, I agree with the assessment, medical decision making and plan of care as documented. Chart was dictated using [employer] dictation software. Attempts were made to correct any dictation errors however some typographical errors may persist. Patient was seen during a national state of emergency due to the Covid-19 pandemic. (Diana Ryan) Disposition Is patient prescribed a controlled substance at d/c from ED?: No Time of Disposition: 17:20 <Artemio Webb - Last Filed: 01/26/21 17:16> <Diana Ryan - Last Filed: 01/27/21 17:02> Clinical Impression: Abscess of right axilla Disposition: HOME SELF-CARE Condition: Stable Instructions (If sedation given, give patient instructions): Abscess (ED), Abscess Incision and Drainage (DC) Additional Instructions: Please return to the Emergency Department if symptoms worsen or any other concerns. Prescriptions: Sulfamethox-Tmp 800-160Mg [Bactrim Ds] 1 each PO Q12HR #20 tab Referrals: Isaac Cooper MD [Primary Care Provider] - 1-2 days
== END 2021-01-26 17:32 | disposition home or self-care (01) ==
LOC: EC 16:55
DX: L02.411 Cutaneous abscess of right axilla (principal); F32.9 Major depressive disorder, single episode, unspecified
CPT/HCPCS: 10060; 99282

== ENCOUNTER → 2023-03-12 | Outpatient (CLI) | payer OTHER ==
[2023-03-12 16:08] VITALS: BP 101/66; PULSE 81; RESP 16; TEMP 98.1; BMI 42.0
--- NOTE | 2023-03-12 16:33 | P.HPBAR ---
Bariatric H&P - History & Physicial H&P Date: 03/12/23 History & Physicial: Visit/CC: Initial Patient initial contact: Initial weight: 2.481 kg Initial weight in pounds: 5.47 Height: 5 ft 7.5 in Initial BMI: 0.8 Last weight: Current weight: 123.632 kg Current weight in pounds: 272.56 Current BMI: 42.0 [place] body weight (based on NIH guidelines): 62.369 kg Excess body weight loss: The patient is a 37 year-old F who presents for Bariatric Assessment. Patient here today to discuss bariatric surgery options. Her father had LAP-BAND and later converted to sleeve gastrectomy. Her sister had lap band. Patient is interested in laparoscopic sleeve gastrectomy at this time. BMI 42. No tobacco use. Patient with complaints of GERD. Denies history of DVT or dysphagia. Surgical history includes , laparoscopic cholecystectomy, open appendectomy. Review of Systems The patient denies any acute changes in vision or hearing, no dysphagia or odynophagia, no chest pain or shortness of breath, no dysuria or hematuria, no headache, no runny nose, no rectal bleeding or melena, no unexplained weight loss Past Medical History Past Medical History: Liver Disease Additional Past Medical History / Comment(s): hep C History of Any Multi-Drug Resistant Organisms: None Reported Past Surgical History: Appendectomy, Section, Cholecystectomy Past Psychological History: Depression Smoking Status: Vaper Past Alcohol Use History: None Reported Past Drug Use History: None Reported, Heroin, Methamphetamine - Past Family History Mother Family Medical History: Cancer, COPD, Hypertension Additional Family Medical History / Comment(s): CERVICAL CANCER Father Family Medical History: COPD, Hypertension Surgical - Exam Vital Signs Temp Pulse Resp BP 98.1 F 81 16 101/66 03/12/23 13:31 03/12/23 13:31 03/12/23 13:31 03/12/23 13:31 Physical exam: General: Well-developed, well-nourished HEENT: Normocephalic, sclerae nonicteric Abdomen: Nontender, nondistended Extremities: No edema Neuro: Alert and oriented Bariatric Assessment & Plan (1) Morbid obesity Narrative/Plan: 37-year-old female with morbid obesity. Patient has tried a variety of different weight loss methods without success. We discussed the various surgical options and the risks and benefits. The anticipated average weight loss was also discussed in detail. She remains interested in laparoscopic sleeve gastrectomy. We'll proceed with preoperative upper endoscopy. Obtain appropriate documentation from primary care and psychiatric evaluation. Patient will contact me with any further questions at this point. Status: Acute Bariatric Checklist Checklist: Plan: Checklist: EGD: 1. Hiatal hernia: 2. H. Pylori: HgbA1c: Vitamin D: Smoking: Never smoker Primary care physician referral: Narendra Psychiatry clearance: Cardiology clearance: Sleep study: Diet journal: VTE risk score: VTE risk level: Rehab needs at discharge:
== END ==
LOC: BARWHC3 11:14
PROVIDERS: ATTEND Surgery
DX: E66.01 Morbid (severe) obesity due to excess calories (principal); K21.9 Gastro-esophageal reflux disease without esophagitis; F17.290 Nicotine dependence, other tobacco product, uncomplicated; Z68.41 Body mass index [BMI] 40.0-44.9, adult
CPT/HCPCS: 99202

== ENCOUNTER → 2023-04-08 | Outpatient (CLI) | payer OTHER ==
[2023-04-08 15:34] LABS: HCT 42.8 % (37.2-46.3); HGB 13.8 d/dL (12.0-15.0); MCH 29.4 pg (27.0-32.0); MCHC 32.2 d/dL (32.0-37.0); MCV 91.3 FL (80.0-97.0); Mean Platelet Volume 12.9 FL (9.5-12.2); NRBC Per 100 WBC 0 X 10*3/uL (0.00-0.01); Platelet Count 204 X 10*3/uL (140-440); RBC 4.69 X 10*6/uL (4.10-5.20); RDW 12.6 % (11.5-14.5); WBC 8.42 X 10*3/uL (4.50-10.00)
[2023-04-08 16:39] LABS: ALT 32 U/L (8-44); AST 24 U/L (13-35); Albumin 4.4 d/dL (3.8-4.9); Albumin/Globulin Ratio 1.63 Ratio (1.60-3.17); Alkaline Phosphatase 68 U/L (41-126); BUN/Creat Ratio 14.75 Ratio (12.00-20.00); Blood Urea Nitrogen 11.8 mg/dL (9.0-27.0); Calcium 9.4 mg/dL (8.7-10.3); Carbon Dioxide 22.7 mmol/L (21.6-31.8); Chloride 105 mmol/L (96-109); Globulin 2.7 d/dL (1.6-3.3); Glucose 101 mg/dL (70-110); Iron 101 UG/DL (50-170); Potassium 4.6 mmol/L (3.5-5.5); Sodium 141 mmol/L (135-145); Total Bilirubin 0.6 mg/dL (0.3-1.2); Total Protein 7.1 d/dL (6.2-8.2)
== END | disposition home or self-care (01) ==
LOC: LABWHC1 08:53
PROVIDERS: ATTEND Surgery
DX: Z71.51 Drug abuse counseling and surveillance of drug abuser (principal); E66.01 Morbid (severe) obesity due to excess calories; E55.9 Vitamin D deficiency, unspecified; K90.89 Other intestinal malabsorption; I42.2 Other hypertrophic cardiomyopathy; R94.31 Abnormal electrocardiogram [ECG] [EKG]
CPT/HCPCS: 36415; 80053; 80307; 82306; 82607; 82746; 83036; 83540; 84425; 85027; 93005

== ENCOUNTER → 2023-07-13 | Outpatient (CLI) | payer OTHER ==
[2023-07-13 16:01] LABS: Basophils # (A) 0.02 X 10*3/uL (0.00-0.10); Basophils % (A) 0.2 %; Eosinophils # (A) 0.18 X 10*3/uL (0.04-0.35); Eosinophils % (A) 1.9 %; HCT 42.6 % (37.2-46.3); HGB 13.6 g/dL (12.0-15.0); Lymphocytes % (A) 9.7 %; MCH 29.7 pg (27.0-32.0); MCHC 31.9 g/dL (32.0-37.0); Mean Platelet Volume 13.9 FL (9.5-12.2); Monocytes # (A) 0.67 X 10*3/uL (0.20-1.00); Monocytes % (A) 7.3 %; NRBC Per 100 WBC 0 X 10*3/uL (0.00-0.01); Neutrophils # (A) 7.43 X 10*3/uL (1.80-7.70); Neutrophils % (A) 80.5 %; Platelet Count 203 X 10*3/uL (140-440); RBC 4.58 X 10*6/uL (4.10-5.20); RDW 12.9 % (11.5-14.5); WBC 9.24 X 10*3/uL (4.50-10.00)
== END | disposition home or self-care (01) ==
LOC: LABWHC1 11:41
PROVIDERS: ATTEND Nurse Practitioner
DX: R59.1 Generalized enlarged lymph nodes (principal)
CPT/HCPCS: 36415; 85025

== ENCOUNTER 2023-07-14 09:51 | Day surgery (SDC) | payer OTHER ==
[~2023-07-14 09:51] MED LIST: LACTATED RINGERS 1,000 ML IV SCH
[2023-07-14] MEDS ORDERED: PROPOFOL 10 MG/ML 20 ML VIAL IV ONE (10:39)
[2023-07-14] MEDS ORDERED: LIDOCAINE 1% INJ 10MG/ML (20 ML MDV) ONE (10:39)
[2023-07-14] MEDS ORDERED: KETAMINE HCL IN 0.9 % NACL 50 MG/5 ML SYRINGE ONE (10:39)
[2023-07-14 10:40] VITALS: TEMP 97.8
--- NOTE | 2023-07-14 10:45 | P.GSHP ---
History of Present Illness H&P Date: 07/14/23 Chief Complaint: GERD 38-year-old female here for upper endoscopy. Patient being seen for bariatric surgery. Mild reflux symptoms. No dysphagia. Past Medical History Past Medical History: Liver Disease Additional Past Medical History / Comment(s): hep C History of Any Multi-Drug Resistant Organisms: None Reported Past Surgical History: Appendectomy, Section, Cholecystectomy Past Psychological History: Depression Smoking Status: Vaper Past Alcohol Use History: None Reported Past Drug Use History: None Reported, Heroin, Methamphetamine - Past Family History Mother Family Medical History: Cancer, COPD, Hypertension Additional Family Medical History / Comment(s): CERVICAL CANCER Father Family Medical History: COPD, Hypertension Medications and Allergies Home Medications Medication Instructions Recorded Confirmed Type buPROPion HCL [Wellbutrin XL] 150 mg PO DAILY 12/31/17 07/14/23 History Allergies Allergy/AdvReac Type Severity Reaction Status Date / Time No Known Allergies Allergy Verified 07/14/23 10:12 Surgical - Exam Vital Signs Temp Pulse Resp BP Pulse Ox 97.8 F 69 18 109/67 98 07/14/23 10:20 07/14/23 10:20 07/14/23 10:20 07/14/23 10:20 07/14/23 10:20 Physical exam: General: Well-developed, well-nourished HEENT: Normocephalic, sclerae nonicteric Abdomen: Nontender, nondistended Extremities: No edema Neuro: Alert and oriented Assessment and Plan (1) GERD (gastroesophageal reflux disease) Narrative/Plan: Will proceed with EGD Current Visit: Yes Status: Acute Code(s): K21.9 - GASTRO-ESOPHAGEAL REFLUX DISEASE WITHOUT ESOPHAGITIS SNOMED Code(s): 604996720
--- NOTE | 2023-07-14 10:52 | P.PCN ---
Date of Procedure: 07/14/23 Procedure(s) Performed: Preoperative Dx: GERD Postoperative Dx: Mild gastritis, mild distal esophagitis, small hiatal hernia Procedure: EGD with Bx Anesthesia: Sedation Endoscopist: Dr. Flores Specimens: Antrum, distal esophagus Endoscopic Procedure: The patient was on the endoscopy table in the left decub itus position. The Olympus gastroscope was inserted into the oropharynx and passed under direct visualization to the region of the third portion of the duodenum. From that point the scope was slowly withdrawn inspecting all surfaces carefully. There were no neoplastic inflammatory or polypoid lesions throughout the duodenum. The pylorus was widely patent. The stomach was carefully inspected. There was mild gastritis. A biopsy of the antrum took place to rule out H. pylori. Retroflexion revealed a normal appearing hiatus. The esophagus was then carefully examined. As we withdrew the scope into the esophagus there may be a small 1 cm or less hiatal hernia. There was mild linear inflammatory changes distally. These were approximately 1 cm in length. Biopsies of the distal esophagitis took place. The remainder the esophagus appear normal. The patient was then taken to the recovery room in stable condition per anesthesia guidelines. Recommendations: Await biopsy results. Begin antiacid therapy.
[2023-07-14 11:27] VITALS: BP 142/78; PULSE 70; RESP 16
== END 2023-07-14 11:45 | disposition home or self-care (01) ==
LOC: ORWHC2ENDO 09:51
PROVIDERS: ATTEND Surgery
DX: K29.50 Unspecified chronic gastritis without bleeding (principal); K21.00 Gastro-esophageal reflux disease with esophagitis, without bleeding; K44.9 Diaphragmatic hernia without obstruction or gangrene; K76.9 Liver disease, unspecified; F12.90 Cannabis use, unspecified, uncomplicated; F32.A Depression, unspecified; Z86.19 Personal history of other infectious and parasitic diseases; Z90.49 Acquired absence of other specified parts of digestive tract; Z98.890 Other specified postprocedural states; Z80.8 Family history of malignant neoplasm of other organs or systems; Z79.899 Other long term (current) drug therapy
CPT/HCPCS: 81025; 88305; 43239; J2001; J2704

== ENCOUNTER → 2023-08-03 | Outpatient (CLI) | payer OTHER ==
[2023-08-03 14:40] VITALS: BMI 43.8
== END ==
LOC: BARWHC3 12:42
PROVIDERS: ATTEND Surgery
DX: E66.01 Morbid (severe) obesity due to excess calories (principal); Z71.3 Dietary counseling and surveillance; Z68.42 Body mass index [BMI] 45.0-49.9, adult
CPT/HCPCS: 97804; G0463; 99211

== ENCOUNTER → 2023-08-04 | Outpatient (CLI) | payer OTHER ==
[2023-08-04 15:32] VITALS: BP 121/88; PULSE 69; RESP 16; TEMP 97.8; BMI 43.4
--- NOTE | 2023-08-04 15:37 | P.BASOAP ---
Subjective Progress Note Date: 08/04/23 Principal diagnosis: Morbid obesity Patient returns after recent preoperative EGD. EGD showed mild gastritis, mild distal esophagitis and hiatal hernia. Patient states she has mild reflux. Never takes medications however after EGD was started on omeprazole. Says her symptoms of reflux have been absent since then. Still very interested in sleeve gastrectomy. Objective - Vital Signs Vital signs: Vital Signs Temp 97.8 F 08/04/23 15:08 Pulse 69 08/04/23 15:08 Resp 16 08/04/23 15:08 BP 121/88 08/04/23 15:08 Pulse Ox FiO2 Intake & Output 08/03/23 08/04/23 08/04/23 18:59 06:59 18:59 Weight 127.913 kg - Exam Abdomen: Soft, nontender, nondistended Assessment/Plan (1) Morbid obesity Narrative/Plan: Patient doing well at this time. Very committed to proceeding with sleeve gastrectomy. She and I discussed the increased risks of postoperative reflux possibly even requiring future conversion to gastric bypass. Despite that patient has not interested in gastric bypass at this time and would like to proceed with sleeve gastrectomy. Will schedule for laparoscopic assisted sleeve gastrectomy with possible repair hiatal hernia, possible open. The risks of bleeding, infection, stenosis, stricture, leak, abscess, fistula formation, peritonitis, poor weight loss, reflux, vomiting, conversion to an open procedure, aborting sleeve gastrectomy, [place], PE, DVT, and were discussed. The patient understands and wishes to proceed. Plan: Date: 08/04/23 Initial Weight: 2.481 kg Initial BMI: 0.8 Current Weight: 127.913 kg Current BMI: 43.4 Type of Surgery: Total Volume in Band: Previous Volume: Volume Removed: Volume Added: Band Size:
== END ==
LOC: BARWHC3 14:56
PROVIDERS: ATTEND Surgery
DX: E66.01 Morbid (severe) obesity due to excess calories (principal); K21.9 Gastro-esophageal reflux disease without esophagitis; K20.90 Esophagitis, unspecified without bleeding; K29.70 Gastritis, unspecified, without bleeding; Z71.3 Dietary counseling and surveillance; Z68.41 Body mass index [BMI] 40.0-44.9, adult
CPT/HCPCS: 99211

== ENCOUNTER → 2023-08-04 | Outpatient (CLI) | payer OTHER ==
[2023-08-06 06:56] LABS: Anabasine Urine <2.0 ng/mL (<2.0)
== END | disposition home or self-care (01) ==
LOC: LABPAT 12:16
PROVIDERS: ATTEND Surgery
DX: Z01.812 Encounter for preprocedural laboratory examination (principal); R00.1 Bradycardia, unspecified
CPT/HCPCS: 93005; 36415; G0480; 80323

== ENCOUNTER 2023-09-30 18:59 | Emergency (ER) | payer OTHER ==
[2023-09-30 19:30] VITALS: TEMP 98.4
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
[2023-09-30] MEDS: KETOROLAC 15 MG/ML 1 ML VIAL IM STA (20:08)
[2023-09-30 20:41] VITALS: BP 119/87; PULSE 68; RESP 18
== END 2023-09-30 20:12 | disposition home or self-care (01) ==
LOC: EC 18:59
DX: S46.911A Strain of unspecified muscle, fascia and tendon at shoulder and upper arm level, right arm, initial encounter (principal); S80.211A Abrasion, right knee, initial encounter; S59.901A Unspecified injury of right elbow, initial encounter; F17.290 Nicotine dependence, other tobacco product, uncomplicated; V86.56XA Driver of dirt bike or motor/cross bike injured in nontraffic accident, initial encounter; Y92.009 Unspecified place in unspecified non-institutional (private) residence as the place of occurrence of the external cause
CPT/HCPCS: 99284; 96372; 73030; 73080; 71046; J1885

== ENCOUNTER → 2023-10-05 | Outpatient (CLI) | payer OTHER ==
[2023-10-05 16:29] LABS: ALT 42 U/L (8-44); AST 30 U/L (13-35); Albumin 4.1 g/dL (3.8-4.9); Albumin/Globulin Ratio 1.64 Ratio (1.60-3.17); Alkaline Phosphatase 67 U/L (41-126); Calcium 8.9 mg/dL (8.7-10.3); Carbon Dioxide 24.6 mmol/L (21.6-31.8); Chloride 106 mmol/L (96-109); Globulin 2.5 g/dL (1.6-3.3); Glucose 105 mg/dL (70-110); Potassium 4.5 mmol/L (3.5-5.5); Sodium 139 mmol/L (135-145); Total Bilirubin 0.3 mg/dL (0.3-1.2); Total Protein 6.6 g/dL (6.2-8.2)
[2023-10-05 17:02] LABS: Basophils # (A) 0.03 X 10*3/uL (0.00-0.10); Basophils % (A) 0.4 %; Eosinophils # (A) 0.21 X 10*3/uL (0.04-0.35); Eosinophils % (A) 2.5 %; HGB 13.1 g/dL (12.0-15.0); Lymphocytes # (A) 1.04 X 10*3/uL (0.90-5.00); Lymphocytes % (A) 12.1 %; MCH 29.4 pg (27.0-32.0); MCV 91.9 FL (80.0-97.0); Mean Platelet Volume 12.9 FL (9.5-12.2); Monocytes # (A) 0.69 X 10*3/uL (0.20-1.00); Monocytes % (A) 8.1 %; NRBC Per 100 WBC 0 X 10*3/uL (0.00-0.01); Neutrophils # (A) 6.56 X 10*3/uL (1.80-7.70); Neutrophils % (A) 76.4 %; Platelet Count 238 X 10*3/uL (140-440); RBC 4.46 X 10*6/uL (4.10-5.20); RDW 13.1 % (11.5-14.5); WBC 8.57 X 10*3/uL (4.50-10.00)
== END | disposition home or self-care (01) ==
LOC: LABPAT 10:12
PROVIDERS: ATTEND Surgery
DX: Z01.812 Encounter for preprocedural laboratory examination (principal)
CPT/HCPCS: 36415; 80053; 85025; 86850; 86870; 86880; 86900; 86901

== ENCOUNTER 2023-10-12 09:31 | Inpatient (IN) | payer OTHER ==
[~2023-10-12 09:31] MED LIST changes: -LACTATED RINGERS 1,000 ML IV SCH; +LIDOCAINE 1% (10MG/ML) FOR IV START INTRADERMA PRN; +ONDANSETRON 4 MG/2 ML VIAL IVP PRN
[2023-10-12] MEDS: LACTATED RINGERS 1,000 ML IV SCH (10:07)
[2023-10-12] MEDS: ACETAMINOPHEN TAB 500 MG TAB PO PRN (10:15)
[2023-10-12] MEDS: DEXAMETHASONE SOD PHOSPHATE 4 MG/ML 1 ML VIAL IV ONE (10:15)
[2023-10-12] MEDS: ONDANSETRON 4 MG/2 ML VIAL IVP ONE (10:15)
[2023-10-12] MEDS: ENOXAPARIN 40 MG/0.4 ML SYRINGE SQ PRN (10:15)
[2023-10-12] MEDS: SCOPOLAMINE 1 MG/72 HR PATCH TRANSDERM ONE (10:55)
--- NOTE | 2023-10-12 13:00 | P.GSHP ---
History of Present Illness H&P Date: 10/12/23 Chief Complaint: Morbid obesity 38-year female known to our service. Patient seen initially in the bariatric clinic last fall. He has family members who have had sleeve gastrectomy in the past. Presenting BMI was 42 today it is 41.7. Patient has complaints of GERD. Found on recent EGD to have a hiatal hernia. Surgical history includes C- section lap princess and appendectomy. Denies any history of DVT or dysphagia. No smoking. Past Medical History Past Medical History: Asthma, Liver Disease Additional Past Medical History / Comment(s): hep C/successfully treated, asthma as a child History of Any Multi-Drug Resistant Organisms: None Reported Past Surgical History: Appendectomy, Section, Cholecystectomy Additional Past Surgical History / Comment(s): 3 C-sections, EGD Past Anesthesia/Blood Transfusion Reactions: No Reported Reaction Smoking Status: Former smoker, Vaper - Past Family History Mother Family Medical History: Cancer, COPD, Hypertension Additional Family Medical History / Comment(s): CERVICAL CANCER Father Family Medical History: COPD, Hypertension, Myocardial Infarction ([place]) Additional Family Medical History / Comment(s): of massive [place] at 63yrs. Medications and Allergies Home Medications Medication Instructions Recorded Confirmed Type buPROPion HCL [Wellbutrin XL] 150 mg PO QAM 12/31/17 10/12/23 History Omeprazole [PriLOSEC] 20 mg PO AC-BRKFST #90 cap 07/14/23 10/12/23 Rx Multivitamins, Thera [Multivitamin 1 tab PO QAM 10/09/23 10/12/23 History (formulary)] Allergies Allergy/AdvReac Type Severity Reaction Status Date / Time No Known Allergies Allergy Verified 10/12/23 09:59 Surgical - Exam Vital Signs Temp Pulse Resp BP Pulse Ox 97.0 F L 61 16 115/68 99 10/12/23 10:00 10/12/23 10:00 10/12/23 10:00 10/12/23 10:10/12/23 10:00 Physical exam: General: Well-developed, well-nourished HEENT: Normocephalic, sclerae nonicteric Abdomen: Nontender, nondistended Extremities: No edema Neuro: Alert and oriented Assessment and Plan (1) Morbid obesity Narrative/Plan: 38-year-old female with morbid obesity. On recent EGD found to have a small hiatal hernia. Will proceed with laparoscopic da Shanta assisted sleeve gastrectomy with hiatal hernia repair. Risks of bleeding, infection, recurrence, bladder and bowel injury, numbness, nerve injury, conversion to an open procedure were discussed with the patient. The patient understands and wishes to proceed. Current Visit: No Status: Acute Code(s): E66.01 - MORBID (SEVERE) OBESITY DUE TO EXCESS CALORIES SNOMED Code(s): 529947495
[2023-10-12] MEDS ORDERED: fentaNYL (PF) 50 MCG/ML 2 ML AMP ONE (13:23)
[2023-10-12] MEDS ORDERED: ACETAMINOPHEN IV (For NPO) 1,000 MG/100 ML VIAL ONE (13:23)
[2023-10-12] MEDS ORDERED: MIDAZOLAM 2 MG/2 ML VIAL ONE (13:23)
[2023-10-12] MEDS ORDERED: GLYCOPYRROLATE 0.2 MG/ML 2 ML VIAL ONE (13:23)
[2023-10-12] MEDS ORDERED: ROCURONIUM 10 MG/ML (5 ML VIAL) IV ONE (13:23)
[2023-10-12] MEDS ORDERED: PROPOFOL 10 MG/ML 20 ML VIAL IV ONE (13:23)
[2023-10-12] MEDS ORDERED: SUCCINYLCHOLINE CHLORIDE 200 MG/10 ML VIAL IV ONE (13:23)
[2023-10-12] MEDS ORDERED: HYDROmorphone (PF) 1 MG/ML ONE (13:23)
[2023-10-12] MEDS ORDERED: LIDOCAINE 1% INJ 10MG/ML (20 ML MDV) ONE (13:23)
[2023-10-12] MEDS ORDERED: NEOSTIGMINE 1 MG/ML 10 ML VIAL ONE (13:23)
[2023-10-12] MEDS ORDERED: KETAMINE HCL IN 0.9 % NACL 50 MG/5 ML SYRINGE ONE (13:23)
[2023-10-12] MEDS: ceFAZolin 3 GM in SODIUM CHLORIDE 0.9% 100 ML IVPB PRN (13:25)
[2023-10-12] MEDS: BUPIVACAINE (PF) 0.25% 30 ML VIAL SQ ONE (13:25)
[2023-10-12] MEDS: LACTATED RINGERS 1,000 ML IV ONE (15:11)
[2023-10-12] MEDS: WATER IRRIGATION ONE (15:27)
[2023-10-12] MEDS: METHYLENE BLUE IRRIGATION ONE (15:27)
[2023-10-12] MEDS: DEXTROSE 5% IRRIGATION ONE (15:27)
[2023-10-12] MEDS ORDERED: NALOXONE 0.4 MG/ML 1 ML VIAL IV PRN (15:57)
[2023-10-12] MEDS ORDERED: HYDROmorphone 0.5 MG/0.5 ML SYRINGE IVP PRN (15:58)
[2023-10-12] MEDS ORDERED: HYDROmorphone 1 MG/ML 1 ML SYRINGE IVP PRN (15:58)
[2023-10-12] MEDS ORDERED: diphenhydrAMINE 50 MG/ML 1 ML VIAL IVP PRN (15:58)
--- NOTE | 2023-10-12 16:04 | P.OP ---
Date of Procedure: 10/12/23 Procedure(s) Performed: PREOPERATIVE DIAGNOSIS: Morbid obesity, GERD, hiatal hernia POSTOPERATIVE DIAGNOSIS: Same PROCEDURE: Da Shanta assisted laparoscopic sleeve gastrectomy with repair hiatal hernia SURGEON: Sandra EBL: Minimal ANESTHESIA: General COMPLICATIONS: None OPERATIVE PROCEDURE: Patient was placed in the operating table in the supine position. The patient was then placed under general anesthesia at that time. The abdomen was prepped and draped in the usual sterile fashion. A 5 mm optical trocar was placed in the left upper quadrant 20 cm inferior to the xiphoid process. Insufflation took place up to 15 mmHg. No adhesions were seen. A 5 mm subxiphoid incision was made and the medium Shayla retractor was used to elevate the left lobe of liver anteriorly. This was held in place using the fixed arm retractor. An additional 12 mm trocar was placed in the right paramedian location and 2 additional 8 mm trochars were placed in the left upper quadrant one medial and one lateral to the initially placed optical trocar. All of these trochars were placed along the same plane. The initial 5 was then switched to an 8 mm trocar. The robot was then docked appropriately. The 8 mm camera was placed in the left paramedian trocar site down viewing. A fenestrated bipolar was placed in arm 1, arm 3 had the vessel sealer, arm 4 had the small grasper retractor. The hiatus was inspected and there as expected a small hiatal hernia present. The gastropathic ligament was opened. Dissection on the right side of the proximal stomach and esophagus took place. At that point I moved to the distal aspect of the greater curvature the stomach. The short gastric vasculature were divided using the vessel sealer. This dissection took place distally until we were 4 cm from the pylorus. The posterior adhesions were divided as well. The dissection then took place proximally along the stomach until the posterior short gastrics were divided and the fundus of the stomach was fully mobilized. At that time further dissection behind the stomach took place at the hiatus. The distal aspect of the esophagus was mobilized a distance of approximately 2 to 3 cm. This allowed for adequate mobilization inferiorly. There was no herniated fat. Once we had the stomach appropriate located the posterior crura was reapproximated using a short running nonabsorbable 2 oh V-Loc stitch. At that time the blunt tipped 40-Georgian bougie dilator was advanced into the stomach and advanced all the way to the prepyloric location. The patient's stomach by palpation seemed to be of average thickness. The first firing of the stapler was a green load with SLR buttress. Next 2 firings of the stapler were blue load without buttress material. Following that we used 3 blue load scottie with seam guard. The stomach was then placed in the right upper quadrant after it was fully excised. Pressure was brought down to 8 mmHg for short time to inspect for bleeding. The staple line was inspected and no bleeding was seen. Tisseel fibrin glue was then used along the length of the staple line. The robot was then undocked. The da Shanta laparoscope was used and the stomach was removed from the 12 mm trocar site without difficulty. The fascia at the 12mm site was closed using [id number] ht 0 Vicryl sutures with the laparoscopic suture passer and [place] Jhonathan technique. The insufflation was evacuated. The skin at all 5 incisions were closed using 4-0 Monocryl sutures. Skin glue was then applied. DISPOSITION: Stable to recovery room
[2023-10-12] MEDS: HYDROmorphone 0.5 MG/0.5 ML SYRINGE IVP PRN (16:52)
[2023-10-12] MEDS: droPERidol 5 MG/2 ML VIAL IVP ONE (16:55)
[2023-10-12] MEDS: 0.9% NACL WITH KCL 20 MEQ/L 1,000 ML IV SCH (16:56)
[2023-10-12] MEDS: ALBUTEROL NEBULIZED 2.5 MG/3 ML INHALATION SCH (17:52)
[2023-10-12] MEDS: ACETAMINOPHEN IV (For NPO) 1,000 MG in EMPTY BAG 1 BAG IVPB SCH (18:27)
[2023-10-12] MEDS: SIMETHICONE 80 MG CHEWABLE PO PRN (18:32)
[2023-10-12] MEDS: SCOPOLAMINE 1 MG/72 HR PATCH TRANSDERM STA (21:20)
[2023-10-12] MEDS: ONDANSETRON 4 MG/2 ML VIAL IVP SCH (21:20)
[2023-10-13] MEDS: ENOXAPARIN 40 MG/0.4 ML SYRINGE SQ SCH (02:05)
[2023-10-13] MEDS: METOCLOPRAMIDE 5 MG/ML 2 ML VIAL IVP SCH (06:09)
[2023-10-13] MEDS: HYOSCYAMINE ORAL DROPS 1.875 MG/15 ML BOTTLE PO PRN (06:10)
[2023-10-13 07:21] LABS: African American GFR (CKD) >90 (>60 ml/min/1.73 sqM); Anion Gap 9 mmol/L; Blood Urea Nitrogen 9 mg/dL (7-17); Calcium 9.2 mg/dL (8.4-10.2); Carbon Dioxide 19 mmol/L (22-30); Chloride 107 mmol/L (98-107); Magnesium 1.9 mg/dL (1.6-2.3); Non-African American GFR(CKD) >90 (>60 ml/min/1.73 sqM); Phosphorus 3.2 mg/dL (2.5-4.5); Potassium 4.5 mmol/L (3.5-5.1); Sodium 135 mmol/L (137-145)
[2023-10-13 08:34] LABS: Basophils % (A) 0 %; Eosinophils # (A) 0.1 k/uL (0-0.7); Eosinophils % (A) 0 %; HCT 40.4 % (34.0-46.0); HGB 13.1 gm/dL (11.4-16.0); Lymphocytes # (A) 0.8 k/uL (1.0-4.8); Lymphocytes % (A) 5 %; MCH 29.8 pg (25.0-35.0); MCHC 32.4 g/dL (31.0-37.0); MCV 91.9 fL (80.0-100.0); Mean Platelet Volume 11.8; Monocytes % (A) 6 %; Neutrophils # (A) 15.1 k/uL (1.3-7.7); Neutrophils % (A) 89 %; Platelet Count 291 k/uL (150-450); RBC 4.39 m/uL (3.80-5.40); RDW 12.7 % (11.5-15.5); WBC 17.1 k/uL (3.8-10.6)
[2023-10-13] MEDS: KETOROLAC 15 MG/ML 1 ML VIAL IVP SCH (09:44)
[2023-10-13] MEDS: PANTOPRAZOLE 40 MG/10 ML VIAL IV SCH (09:46)
[2023-10-13] MEDS: 0.9% NACL WITH KCL 20 MEQ/L 1,000 ML IV SCH (09:59)
[2023-10-13 11:44] VITALS: BMI 41.6
--- NOTE | 2023-10-13 12:33 | FL ---
SINGLE CONTRAST UPPER GI EXAMINATION: CLINICAL HISTORY: 38-year-old female postbariatric surgery. Status post sleeve gastrectomy and hiata l hernia repair yesterday. TECHNIQUE: Single contrast exam performed with 3 small sips of Isovue-370 contrast. FL TIME- 1.35 minutes DAP- [id number] Total images: 23 FINDINGS: The patient took a total of 3 small sips of contrast. There is satisfactory passage of contrast along the esophagus but with progressive pooling in the distal esophagus with high-grade obstruction at th e GE junction. There may be minimal trace passage of contrast to just below the GE junction. There is either a small residual hiatal hernia or a prominent esophageal vestibule noted. As the nasogastric tube is not visualized, the patient will need follow-up to exclude any leak along the gastric sleeve. Trace postsurgical free air is present on both sides. IMPRESSION: 1. Severe obstruction at the GE junction. There is only minimal contrast passing below the GE junctio n. The patient had only 3 small sips and contrast/fluid layers to the lower third chest. 2. Either a small residual hiatal hernia versus a prominent esophageal vestibule. 3. Trace postsurgical free air on both sides.
--- NOTE | 2023-10-13 13:56 | P.CONS ---
History of Present Illness - Reason for Consult Consult date: 10/13/23 Medical management - History of Present Illness History of present illness; patient is a 38-year-old lady with past medical history significant for GERD, obesity presented to hospital for elective sleeve gastrectomy with hiatal hernia repair. Patient is following up outpatient in the bariatric clinic and had recent EGD done showing hiatal hernia. Patient was scheduled for procedure on 10/11. Postoperatively internal medicine team were consulted for medical management REVIEW OF SYSTEMS: CONSTITUTIONAL: No fever, no malaise, no fatigue. HEENT: No recent visual problems or hearing problems. Denied any sore throat. CARDIOVASCULAR: No chest pain, orthopnea, PND, no palpitations, no syncope. PULMONARY: No shortness of breath, no cough, no hemoptysis. GASTROINTESTINAL: No diarrhea, no nausea, no vomiting, no abdominal pain. NEUROLOGICAL: No headaches, no weakness, no numbness. HEMATOLOGICAL: Denies any bleeding or petechiae. GENITOURINARY: Denies any burning micturition, frequency, or urgency. MUSCULOSKELETAL/RHEUMATOLOGICAL: Denies any joint pain, swelling, or any muscle pain. ENDOCRINE: Denies any polyuria or polydipsia. The rest of the 14-point review of systems is negative. PHYSICAL EXAMINATION: GENERAL: The patient is alert and oriented x3, not in any acute distress. Well developed, well nourished. HEENT: Pupils are round and equally reacting to light. EOMI. No scleral icterus. No conjunctival pallor. Normocephalic, atraumatic. No pharyngeal erythema. No thyromegaly. CARDIOVASCULAR: S1 and S2 present. No murmurs, rubs, or gallops. PULMONARY: Chest is clear to auscultation, no wheezing or crackles. ABDOMEN: Soft, nontender, nondistended, normoactive bowel sounds. No palpable organomegaly. Laparoscopic incisions seen MUSCULOSKELETAL: No joint swelling or deformity. EXTREMITIES: No cyanosis, clubbing, or pedal edema. NEUROLOGICAL: Gross neurological examination did not reveal any focal deficits. SKIN: No rashes. Assessment and plan Morbid obesity Hiatal hernia S/p Da Shanta assisted laparoscopic sleeve gastrectomy with repair hiatal hernia Bradycardia Monitor vital signs Monitor CBC Monitor CMP Continue telemetry monitoring Continue pain management per surgery Continue DVT prophylaxis per surgery DC scopolamine patch secondary to bradycardia Advance diet per surgery Labs and medication were reviewed.. Continue same treatment. Continue with symptomatic treatment. Resume home medication. Monitor labs and vitals. DVT and GI prophylaxis. Further recommendations as per clinical course of the patient Dictation was produced using [employer] dictation software. please excuse any grammatical, word or spelling errors. Past Medical History Past Medical History: Asthma, Liver Disease Additional Past Medical History / Comment(s): hep C/successfully treated, asthma as a child History of Any Multi-Drug Resistant Organisms: None Reported Past Surgical History: Appendectomy, Section, Cholecystectomy Additional Past Surgical History / Comment(s): 3 C-sections, EGD Past Anesthesia/Blood Transfusion Reactions: No Reported Reaction Past Psychological History: Depression Additional Psychological History / Comment(s): Pt resides with fiancee and children. Smoking Status: Former smoker, Vaper Past Alcohol Use History: None Reported Additional Past Alcohol Use History / Comment(s): Pt quit vaping 2 months ago. Pt quit cig smoking 2 yrs ago. Past Drug Use History: Heroin Additional Drug Use History / Comment(s): PATIENT RECOVERED ADDICT, REQUESTS "NONADDICTIVE PAIN MEDICATIONS" ONLY. - Past Family History Mother Family Medical History: Cancer, COPD, Hypertension Additional Family Medical History / Comment(s): CERVICAL CANCER Father Family Medical History: COPD, Hypertension, Myocardial Infarction ([place]) Additional Family Medical History / Comment(s): of massive [place] at 63yrs. Medications and Allergies Home Medications Medication Instructions Recorded Confirmed Type buPROPion HCL [Wellbutrin XL] 150 mg PO QAM 12/31/17 10/12/23 History Omeprazole [PriLOSEC] 20 mg PO -BRKFST #90 cap 07/14/23 10/12/23 Rx Multivitamins, Thera [Multivitamin 1 tab PO QAM 10/09/23 10/12/23 History (formulary)] Allergies Allergy/AdvReac Type Severity Reaction Status Date / Time No Known Allergies Allergy Verified 10/12/23 09:59 Physical Exam Vitals: Vital Signs Temp Pulse Pulse Resp BP Pulse Ox FiO2 10/13/23 11:39 97 21 10/13/23 11:30 64 10/13/23 07:20 98.2 F 44 L 16 159/83 100 10/13/23 02:48 98.0 F 45 L 13 149/83 99 10/12/23 20:06 50 L 136/82 98 10/12/23 19:53 44 L 136/85 100 10/12/23 19:51 44 L 141/89 99 10/12/23 19:36 54 L 138/87 96 10/12/23 19:21 50 L 138/81 95 10/12/23 19:07 79 125/68 95 10/12/23 18:36 46 L 133/88 96 10/12/23 17:57 97 10/12/23 17:20 57 L 14 128/59 96 10/12/23 17:05 58 L 14 138/61 95 10/12/23 16:50 72 16 130/63 94 L 10/12/23 16:35 78 16 130/61 95 10/12/23 16:20 87 16 145/62 95 10/12/23 16:05 98.1 F 88 14 163/70 94 L Intake and Output 10/12/23 10/13/23 10/13/23 22:59 06:59 14:59 Intake Total 850 Output Total 10 Balance 840 Intake: IV 850 Output: Estimated Blood Loss 10 Other: Voiding Method Toilet Toilet # Voids 1 Weight 128 kg 128 kg Results CBC & Chem 7: 10/13/23 05:37 10/13/23 05:37 Labs: Abnormal Lab Results - Last 24 Hours (Table) 10/13/23 10/13/23 Range/Units 05:37 05:37 WBC 17.1 H (3.8-10.6) k/uL Neutrophils # 15.1 H (1.3-7.7) k/uL Lymphocytes # 0.8 L (1.0-4.8) k/uL Sodium 135 L (137-145) mmol/L Carbon Dioxide 19 L (22-30) mmol/L
[2023-10-13] MEDS: DEXAMETHASONE SOD PHOSPHATE 4 MG/ML 1 ML VIAL IVP SCH (14:24)
--- NOTE | 2023-10-13 14:33 | CONS ---
CONSULTATION REASON FOR CONSULTATION: Advice regarding asthma, liver disease, and other medical issues requested by surgery. HISTORY OF PRESENT ILLNESS: This is a 38-year-old woman with a past medical history of asthma, liver disease, underwent laparoscopic-assisted sleeve gastrectomy. The patient is being closely monitored. There is no history of any chest pain, palpitation, or fever at this time. The patient is feeling better after walking. PAST MEDICAL HISTORY: Reviewed include asthma, liver disease, rest of the history and rest of the chart is also reviewed. HOME MEDICATIONS: Wellbutrin XL, dose and rest of medications reviewed. ALLERGIES: None. FAMILY HISTORY: History of cancer, COPD. SOCIAL HISTORY: Previous history of smoking, vaping. REVIEW OF SYSTEMS: A 14-point review is negative except as mentioned. PHYSICAL EXAMINATION: VITAL SIGNS: Pulse is 44, blood pressure is 150/82, respirations 16. CHEST: Clear to auscultation. CARDIOVASCULAR: S1, S2. ABDOMEN: Soft, status post surgery. NERVOUS SYSTEM: Nonfocal. LABORATORY DATA: WBC 17.1, rest of the labs are noted. ASSESSMENT: 1. Status post laparoscopic sleeve gastrectomy. 2. Bradycardia, improved. 3. Elevated WBC, possibly reactive. 4. History of asthma. 5. History of liver disease. 6. History of successful treatment of hep C. 7. History of vaping. 8. Depression. RECOMMENDATIONS AND DISCUSSION: This 38-year-old woman presented after surgery, had multiple medical issues. I would recommend to continue current medications, DVT prophylaxis. Resume the home medications once they are confirmed. Closely follow with surgery. The patient may be asked to follow up with Dr. Cooper after discharge. MMPORFIRIOL / TOMERN: [id number] /
--- NOTE | 2023-10-13 14:44 | P.PN ---
Subjective Progress Note Date: 10/13/23 CHIEF COMPLAINT: Morbid obesity HISTORY OF PRESENT ILLNESS: Patient is postop day #1 status post sleeve g astrectomy and repair of hiatal hernia. Patient had small streaks of blood in clearish emesis last night. Reglan was added. She reports she is feeling better today. She is not nauseated. She was able to tolerate small sips of liquids. The belching she had is improved. She denies any flatus. She has been up and ambulating. Denies any difficulty urinating. Reports that her pain is controlled. Afebrile. WBC is 17.1 Hgb 13.1 platelets 291 sodium is 135 potassium is 4.5 creatinine 0.57 magnesium 1.9 upper GI reports severe obstruction at the GE junction. There is only minimal contrast passing below the GE junction. He had a small residual hiatal hernia versus a prominent esophageal vestibule. Trace postsurgical free air on both sides. PHYSICAL EXAM: VITAL SIGNS: Reviewed. GENERAL: Well-developed in no acute distress. ABDOMEN: Soft. Nondistended. Tender at incision sites. Abdominal binder in place. NEUROLOGIC: Alert and oriented. Cranial nerves II through XII grossly intact. ASSESSMENT: 1. Morbid obesity, GERD, hiatal hernia status post laparoscopic sleeve gastrect elva with repair of hiatal hernia 2. Severe obstruction at the GE junction possibly due to the hiatal hernia repair and postoperative edema PLAN: -Decadron 4 mg IV every 6 hours scheduled ordered -Start sips of bariatric clear liquids -Continue IV fluids -Continue pain management. Toradol added this morning -Encourage patient to ambulate -Encourage patient to use incentive spirometer -Continue antiemetics -Continue Reglan -GI prophylaxis Protonix and DVT prophylaxis Lovenox Physician Demurrage Clerk note has been reviewed by physician. Signing provider agrees with the documented findings, assessment, and plan of care. Patient doing well today. Ambulating. Minimal discomfort. Last night she had more pain and some nausea. Had an episode of vomiting that had a small amount of bloody streaks. Today's upper GI shows significant tightness at the diaphragm. This appears to be related to the crural closure. Begin sips of liquids. Evaluate how much intake she has tomorrow before deciding regarding discharge. Recheck CBC tomorrow. Objective - Vital Signs Vital signs: Vital Signs Temp 98.2 F 04/16/24 07:20 Pulse 64 10/13/23 11:30 Resp 16 10/13/23 07:20 BP 159/83 10/13/23 07:20 Pulse Ox 97 10/13/23 11:39 FiO2 21 10/13/23 11:39 Intake & Output 10/12/23 10/13/23 10/13/23 18:59 06:59 18:59 Intake Total 1950 Output Total 10 Balance 1939 Weight 128 kg 128 kg Intake: IV 1950 Output: Estimated Blood Loss 10 Other: Voiding Method Toilet Toilet # Voids 1 - Labs CBC & Chem 7: 10/13/23 05:37 10/13/23 05:37 Labs: Abnormal Lab Results - Last 24 Hours (Table) 10/13/23 10/13/23 Range/Units 05:37 05:37 WBC 17.1 H (3.8-10.6) k/uL Neutrophils # 15.1 H (1.3-7.7) k/uL Lymphocytes # 0.8 L (1.0-4.8) k/uL Sodium 135 L (137-145) mmol/L Carbon Dioxide 19 L (22-30) mmol/L
[2023-10-14] MEDS: PANTOPRAZOLE 40 MG TABLET PO SCH (06:35)
[2023-10-14] MEDS ORDERED: bisacodyL 5 MG TABLET.DR PO PRN (08:00)
[2023-10-14] MEDS: buPROPion XL 150 MG TAB.ER.24H PO SCH (08:02)
[2023-10-14 08:55] LABS: Basophils # (A) 0.01 X 10*3/uL (0.00-0.10); Basophils % (A) 0.1 %; Eosinophils # (A) 0 X 10*3/uL (0.04-0.35); Eosinophils % (A) 0 %; HCT 36.3 % (37.2-46.3); HGB 11.9 g/dL (12.0-15.0); Lymphocytes # (A) 0.61 X 10*3/uL (0.90-5.00); Lymphocytes % (A) 5.5 %; MCH 29.8 pg (27.0-32.0); MCHC 32.8 g/dL (32.0-37.0); MCV 90.8 FL (80.0-97.0); Monocytes # (A) 0.42 X 10*3/uL (0.20-1.00); Monocytes % (A) 3.8 %; NRBC Per 100 WBC 0 X 10*3/uL (0.00-0.01); Neutrophils # (A) 10.04 X 10*3/uL (1.80-7.70); Neutrophils % (A) 90.1 %; Platelet Count 217 X 10*3/uL (140-440); RDW 12.9 % (11.5-14.5); WBC 11.14 X 10*3/uL (4.50-10.00)
[2023-10-14 09:06] VITALS: BP 150/93; PULSE 42; RESP 18; TEMP 98.1
--- NOTE | 2023-10-14 11:47 | P.DS ---
Providers Date of admission: 10/12/23 09:31 Expected date of discharge: 10/14/23 Attending physician: Eduardo Flores Consults: 10/12/23 15:58 Consult Physician Routine Consulting Provider: Sheri Maciel Consult Reason/Comments: Medical management Do you want consulting provider notified?: Yes Primary care physician: Isaac Cooper Hospital Course: Discharge diagnosis 1. Morbid obesity, GERD, hiatal hernia status post laparoscopic sleeve gastrectomy with repair of hiatal hernia 2. Severe obstruction at the GE junction possibly due to the hiatal hernia repair and postoperative edema Hospital course This is a 38-year-old female with history of morbid obesity. She is status post laparoscopic sleeve gastrectomy and repair of hiatal hernia. Patient's upper GI reported severe obstruction at the GE junction. There is only minimal contrast passing below the GE junction. He had a small residual hiatal hernia versus a prominent esophageal vestibule. Trace postsurgical free air on both sides. Patient was having dysphagia. She was started on IV Decadron. The dysphagia has resolved. She is tolerating her bariatric liquids. Her pain is controlled. Denies any nausea or vomiting. She is having flatus. She has been up and ambulating. Afebrile. She is stable for discharge. Please refer to chart for any further details. Physician Stock Mixer note has been reviewed by physician. Signing provider agrees with the documented findings, assessment, and plan of care. Patient Condition at Discharge: Stable Plan - Discharge Summary Discharge Rx Participant: No New Discharge Prescriptions: New bisacodyL [Dulcolax] 5 mg PO DAILY PRN #10 tab PRN Reason: Constipation Simethicone 40 mg/0.6 ml Drops [Mylicon Drops] 40 mg PO PCHS PRN #30 ml PRN Reason: Gas Omeprazole [PriLOSEC] 40 mg PO DAILY #90 cap Ondansetron Odt [Zofran Odt] 4 mg PO Q8HR PRN #9 tab PRN Reason: Nausea Acetaminophen Tab [Tylenol] 1,000 mg PO Q6HR PRN #30 tablet PRN Reason: Pain Continue buPROPion HCL [Wellbutrin XL] 150 mg PO QAM Discontinued Omeprazole [PriLOSEC] 20 mg PO AC-BRKFST #90 cap Multivitamins, Thera [Multivitamin (formulary)] 1 tab PO QAM Discharge Medication List buPROPion HCL [Wellbutrin XL] 150 mg PO QAM 12/31/17 [History] Acetaminophen Tab [Tylenol] 1,000 mg PO Q6HR PRN #30 tablet 10/14/23 [Rx] Omeprazole [PriLOSEC] 40 mg PO DAILY #90 cap 10/14/23 [Rx] Ondansetron Odt [Zofran Odt] 4 mg PO Q8HR PRN #9 tab 10/14/23 [Rx] Simethicone 40 mg/0.6 ml Drops [Mylicon Drops] 40 mg PO PCHS PRN #30 ml 10/14/23 [Rx] bisacodyL [Dulcolax] 5 mg PO DAILY PRN #10 tab 10/14/23 [Rx] Follow up [facility]ment(s[facility] [place] [facility] Week Activity/Diet/Wound Care/Special Instructions: No lifting over 10 pounds You may shower. No soaking or tub baths for 2 weeks Very light activity until you are reevaluated at your follow up appointment with your surgeon No straws or carbonated beverages Discharge Disposition: HOME SELF-CARE
--- NOTE | 2023-10-14 13:37 | P.PN ---
Subjective Progress Note Date: 10/14/23 patient is a 38-year-old lady with past medical history significant for GERD, obesity presented to hospital for elective sleeve gastrectomy with hiatal hernia repair. Patient is following up outpatient in the bariatric clinic and had recent EGD done showing hiatal hernia. Patient was scheduled for procedure on 10/11. Postoperatively internal medicine team were consulted for medical management 10/13. Patient seen and examined. No acute issue overnight. Denies lightheadedness or dizziness. Patient heart rate is low when she is sleeping. On ambulation it gets up to late 50s or early 60s without any symptoms. REVIEW OF SYSTEMS: CONSTITUTIONAL: No fever, no malaise,. CARDIOVASCULAR: No chest pain, no palpitations, no syncope. PULMONARY: No shortness of breath, no cough, GASTROINTESTINAL: No diarrhea, no nausea, no vomiting, no abdominal pain. NEUROLOGICAL: No headaches, no weakness, PHYSICAL EXAMINATION: GENERAL: The patient is alert and oriented x3, not in any acute distress. Well developed, well nourished. HEENT: Pupils are round and equally reacting to light. EOMI. No scleral icterus. No conjunctival pallor. Normocephalic, atraumatic. No pharyngeal erythema. No thyromegaly. CARDIOVASCULAR: S1 and S2 present. No murmurs, rubs, or gallops. PULMONARY: Chest is clear to auscultation, no wheezing or crackles. ABDOMEN: Soft, nontender, nondistended, normoactive bowel sounds. No palpable organomegaly. MUSCULOSKELETAL: No joint swelling or deformity. EXTREMITIES: No cyanosis, clubbing, or pedal edema. NEUROLOGICAL: Gross neurological examination did not reveal any focal deficits. SKIN: No rashes. Assessment and plan Morbid obesity Hiatal hernia S/p Da Shanta assisted laparoscopic sleeve gastrectomy with repair hiatal hernia Bradycardia Monitor vital signs Monitor CBC Monitor CMP Continue telemetry monitoring Continue pain management per surgery Continue DVT prophylaxis per surgery Advance diet per surgery Patient medically stable for discharge from medicine perspective Labs and medication were reviewed.. Continue same treatment. Continue with symptomatic treatment. Resume home medication. Monitor labs and vitals. DVT and GI prophylaxis. Further recommendations as per clinical course of the patient Dictation was produced using [employer] dictation software. please excuse any grammatical, word or spelling errors. Objective - Vital Signs Vital signs: Vital Signs Temp 98.1 F 10/14/23 07:21 Pulse 42 L 10/14/23 08:27 Resp 18 10/14/23 07:21 BP 150/93 10/14/23 07:21 Pulse Ox 98 10/14/23 07:21 FiO2 21 10/13/23 11:39 Intake & Output 10/13/23 10/14/23 10/14/23 18:59 06:59 18:59 Intake Total 250 Balance 250 Weight 128 kg Intake: Oral 250 Other: Voiding Method Toilet Toilet # Voids 20 10 - Labs CBC & Chem 7: 10/14/23 06:26 10/13/23 05:37 Labs: Abnormal Lab Results - Last 24 Hours (Table) 10/14/23 Range/Units 06:26 WBC 11.14 H (4.50-10.00) X 10*3/uL RBC 4.00 L (4.10-5.20) X 10*6/uL Hgb 11.9 L (12.0-15.0) g/dL Hct 36.3 L (37.2-46.3) % MPV 13.0 H (9.5-12.2) FL Immature Gran # 0.06 H (0.00-0.04) X 10*3/uL Neutrophils # 10.04 H (1.80-7.70) X 10*3/uL Lymphocytes # 0.61 L (0.90-5.00) X 10*3/uL Eosinophils # 0 L (0.04-0.35) X 10*3/uL
== END 2023-10-14 13:06 | disposition home or self-care (01) | DRG 403 ==
LOC: 2ORMAIN 09:31 → 4SSUR 16:53
PROVIDERS: ADMIT Surgery; ATTEND Surgery
PROC: 0BQT4ZZ Repair Diaphragm, Percutaneous Endoscopic Approach (ICD-10-PCS; 2023-10-12)
PROC: 8E0W4CZ Robotic Assisted Procedure of Trunk Region, Percutaneous Endoscopic Approach (ICD-10-PCS; 2023-10-12)
PROC: 0DB64Z3 Excision of Stomach, Percutaneous Endoscopic Approach, Vertical (ICD-10-PCS; principal; 2023-10-12 11:30)
DX: E66.01 Morbid (severe) obesity due to excess calories (principal); Z68.41 Body mass index [BMI] 40.0-44.9, adult; K21.9 Gastro-esophageal reflux disease without esophagitis; K44.9 Diaphragmatic hernia without obstruction or gangrene; F32.A Depression, unspecified; K76.9 Liver disease, unspecified; Z82.5 Family history of asthma and other chronic lower respiratory diseases; Z87.891 Personal history of nicotine dependence; Z90.49 Acquired absence of other specified parts of digestive tract; Z87.09 Personal history of other diseases of the respiratory system
CPT/HCPCS: 74240; 80051; 81025; 82310; 82565; 83735; 84100; 84520; 85025; 88307; 93005

== ENCOUNTER → 2023-10-16 | Outpatient (CLI) | payer OTHER ==
[2023-10-16 11:28] VITALS: BP 138/83; PULSE 60; RESP 14; TEMP 97.8; BMI 42.9
== END ==
LOC: BARWHC3 09:42
PROVIDERS: ATTEND Surgery
DX: E66.01 Morbid (severe) obesity due to excess calories (principal); F33.0 Major depressive disorder, recurrent, mild; Z86.59 Personal history of other mental and behavioral disorders; Z68.41 Body mass index [BMI] 40.0-44.9, adult
CPT/HCPCS: 99211

== ENCOUNTER → 2023-10-20 | Outpatient (CLI) | payer OTHER ==
[2023-10-20 16:26] VITALS: BP 122/86; PULSE 72; RESP 16; TEMP 97.2; BMI 41.2
--- NOTE | 2023-10-20 16:39 | P.BASOAP ---
Subjective Progress Note Date: 10/20/23 Principal diagnosis: Morbid obesity Patient doing well since discharge. Underwent sleeve gastrectomy last week. Heart rate is normal. No fevers. Tolerating good volume of liquids and also protein. Mild dysphagia if drinking too much at 1 time. She thinks this is improving. No pain. Objective - Vital Signs Vital signs: Vital Signs Temp 97.2 F L 10/20/23 15:15 Pulse 72 10/20/23 15:15 Resp 16 10/20/23 15:15 BP 122/86 10/20/23 15:15 Pulse Ox FiO2 Intake & Output 10/19/23 10/20/23 10/20/23 18:59 06:59 18:59 Weight 121.109 kg - Exam Abdomen: Soft, nondistended, incisions clean and dry, minimal tenderness, minimal bruising Assessment/Plan (1) Morbid obesity Narrative/Plan: 38-year-old female doing well after previous sleeve gastrectomy. Continue gradually increasing diet. Will be seen by dietitian today. Continue antacids. Monitor fluid and protein intake closely. Plan recheck here in the office 2 to 3 weeks. Plan: Date: 10/20/23 Initial Weight: 2.481 kg Initial BMI: 0.8 Current Weight: 121.109 kg Current BMI: 41.2 Type of Surgery: Vertical Sleeve Gastrectomy Total Volume in Band: Previous Volume: Volume Removed: Volume Added: Band Size:
== END ==
LOC: BARWHC3 14:28
PROVIDERS: ATTEND Surgery
DX: E66.01 Morbid (severe) obesity due to excess calories (principal); Z71.3 Dietary counseling and surveillance; Z90.3 Acquired absence of stomach [part of]; Z68.41 Body mass index [BMI] 40.0-44.9, adult
CPT/HCPCS: 97803; G0463; 99211

== ENCOUNTER → 2023-11-03 | Outpatient (CLI) | payer OTHER ==
[2023-11-03 16:01] VITALS: BP 131/75; PULSE 97; RESP 16; TEMP 98.3; BMI 40.1
--- NOTE | 2023-11-03 16:34 | P.BASOAP ---
Subjective Progress Note Date: 11/03/23 Principal diagnosis: Morbid obesity Patient returns for recheck. Underwent sleeve gastrectomy October 11. She has lost 7 pounds since her last visit. She did have an episode of lightheadedness after not eating or drinking for many hours over the weekend while at work. Feels well otherwise. Minimal GERD symptoms. Heart rate today 97. No pain. Objective - Vital Signs Vital signs: Vital Signs Temp 98.3 F 11/03/23 15:44 Pulse 97 11/03/23 15:44 Resp 16 11/03/23 15:44 BP 131/75 11/03/23 15:44 Pulse Ox FiO2 Intake & Output 11/02/23 11/03/23 11/03/23 18:59 06:59 18:59 Weight 117.934 kg - Exam Abdomen: Soft, nontender, nondistended Assessment/Plan (1) Morbid obesity Narrative/Plan: 38-year-old female doing well after recent sleeve gastrectomy. Continue advancing diet. Continue monitoring fluid intake. Order slip for 1 month labs given to the patient. States she will have that drawn next week. Continue antiacids. Plan: Date: 11/03/23 Initial Weight: 2.481 kg Initial BMI: 0.8 Current Weight: 117.934 kg Current BMI: 40.1 Type of Surgery: Vertical Sleeve Gastrectomy Total Volume in Band: Previous Volume: Volume Removed: Volume Added: Band Size:
== END ==
LOC: BARWHC3 15:35
PROVIDERS: ATTEND Surgery
DX: E66.01 Morbid (severe) obesity due to excess calories (principal); K21.9 Gastro-esophageal reflux disease without esophagitis; Z71.3 Dietary counseling and surveillance; Z68.41 Body mass index [BMI] 40.0-44.9, adult; Z90.3 Acquired absence of stomach [part of]
CPT/HCPCS: 97803; G0463; 99211

== ENCOUNTER → 2023-11-30 | Outpatient (CLI) | payer OTHER ==
[2023-11-30 15:57] LABS: HCT 37.9 % (37.2-46.3); HGB 12.5 g/dL (12.0-15.0); MCH 29.9 pg (27.0-32.0); MCV 90.7 FL (80.0-97.0); Mean Platelet Volume 13.8 FL (9.5-12.2); NRBC Per 100 WBC 0 X 10*3/uL (0.00-0.01); Platelet Count 172 X 10*3/uL (140-440); RBC 4.18 X 10*6/uL (4.10-5.20); RDW 12.6 % (11.5-14.5); WBC 7.24 X 10*3/uL (4.50-10.00)
[2023-11-30 16:11] LABS: ALT 31 U/L (8-44); AST 29 U/L (13-35); Albumin 4.3 g/dL (3.8-4.9); Albumin/Globulin Ratio 2.05 Ratio (1.60-3.17); Alkaline Phosphatase 51 U/L (41-126); BUN/Creat Ratio 13.29 Ratio (12.00-20.00); Blood Urea Nitrogen 9.3 mg/dL (9.0-27.0); Calcium 9.6 mg/dL (8.7-10.3); Carbon Dioxide 20.2 mmol/L (21.6-31.8); Chloride 106 mmol/L (96-109); Globulin 2.1 g/dL (1.6-3.3); Glucose 86 mg/dL (70-110); Iron 57 UG/DL (50-170); Potassium 3.9 mmol/L (3.5-5.5); Sodium 141 mmol/L (135-145); Total Bilirubin 0.9 mg/dL (0.3-1.2); Total Protein 6.4 g/dL (6.2-8.2)
== END | disposition home or self-care (01) ==
LOC: LABWHC1 09:55
PROVIDERS: ATTEND Surgery
DX: E66.01 Morbid (severe) obesity due to excess calories (principal); K90.89 Other intestinal malabsorption; E55.9 Vitamin D deficiency, unspecified
CPT/HCPCS: 36415; 80053; 82306; 82607; 82746; 83540; 84425; 85027

== ENCOUNTER → 2023-12-01 | Outpatient (CLI) | payer OTHER ==
[2023-12-01 14:16] VITALS: BP 114/77; PULSE 90; RESP 16; TEMP 98.4; BMI 36.7
--- NOTE | 2023-12-01 14:43 | P.BASOAP ---
Subjective Progress Note Date: 12/01/23 Principal diagnosis: Morbid obesity Patient returns for recheck. Doing well since last visit. Excellent weight loss. Still on antiacids. Says she has increased heartburn when she misses her doses of her antiacids. Recent lab work shows a slightly low vitamin D. Otherwise labs look great. Patient is going to the gym 3 times per week. Objective - Vital Signs Vital signs: Vital Signs Temp 98.4 F 12/01/23 14:13 Pulse 90 12/01/23 14:13 Resp 16 12/01/23 14:13 BP 114/77 12/01/23 14:13 Pulse Ox FiO2 Intake & Output 11/30/23 12/01/23 12/01/23 18:59 06:59 18:59 Weight 107.955 kg - Exam Abdomen: Soft, nontender, nondistended Assessment/Plan (1) Morbid obesity Narrative/Plan: Patient doing well at this time. Continue dietary and exercise regimen. Recheck 6 weeks. Check 3-month labs at that time. Continue antiacids. Plan: Date: 12/01/23 Initial Weight: 2.481 kg Initial BMI: 0.8 Current Weight: 107.955 kg Current BMI: 36.7 Type of Surgery: Vertical Sleeve Gastrectomy Total Volume in Band: Previous Volume: Volume Removed: Volume Added: Band Size:
== END ==
LOC: BARWHC3 14:01
PROVIDERS: ATTEND Surgery
DX: E66.01 Morbid (severe) obesity due to excess calories (principal); Z71.3 Dietary counseling and surveillance; Z68.36 Body mass index [BMI] 36.0-36.9, adult; Z90.3 Acquired absence of stomach [part of]
CPT/HCPCS: 99211

== ENCOUNTER → 2024-03-01 | Outpatient (CLI) | payer OTHER ==
[2024-03-01 13:35] VITALS: BP 110/72; PULSE 77; RESP 16; TEMP 98.3; BMI 30.7
--- NOTE | 2024-03-01 13:50 | P.BASOAP ---
Subjective Progress Note Date: 03/01/24 Principal diagnosis: Morbid obesity Patient returns for recheck. She was last seen in November. She has lost 39 pounds in the last 3 months. Feels quite well. Best she is felt in years. Says she has almost lost 100 pounds now. She did try stopping her antiacids and had heartburn so restarted them. Only a few episodes of dysphagia when eating too quickly. She did have an episode at work 1 to 2 weeks ago where she had a near syncopal episode. This was associated with blurry vision, muffled hearing, diarrhea, periorbital numbness. Patient states she did not think she was dehydrated. Patient says she had some sugary foods just prior to that which she had previously been avoiding. Says the symptoms lasted for about 30 minutes. No recurrent episodes. Still exercising. Starting kickboxing in the next week or so. She had labs last visit which showed a slightly low vitamin D. Objective - Vital Signs Vital signs: Vital Signs Temp 98.3 F 03/01/24 13:31 Pulse 77 03/01/24 13:31 Resp 16 03/01/24 13:31 BP 110/72 03/01/24 13:31 Pulse Ox FiO2 Intake & Output 02/29/24 03/01/24 03/01/24 18:59 06:59 18:59 Weight 90.356 kg - Exam Abdomen: Soft, nontender, nondistended Assessment/Plan (1) Morbid obesity Narrative/Plan: Patient doing well after sleeve gastrectomy in September. Continue exercise and dietary regimen. Episode a few weeks ago could be related to hypoglycemia. Patient will discuss it with her primary care physician next visit. Plan recheck with us 2 months. Check 2-month labs at that time. Continue antiacids for now. Plan: Date: 03/01/24 Initial Weight: 2.481 kg Initial BMI: 0.8 Current Weight: 90.356 kg Current BMI: 30.7 Type of Surgery: Total Volume in Band: Previous Volume: Volume Removed: Volume Added: Band Size:
== END ==
LOC: BARWHC3 13:16
PROVIDERS: ATTEND Surgery
DX: E66.01 Morbid (severe) obesity due to excess calories
CPT/HCPCS: 99211

== ENCOUNTER 2024-05-05 11:06 | Emergency (ER) | payer OTHER ==
[2024-05-05 11:30] VITALS: TEMP 98.1
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
[2024-05-05 13:15] VITALS: BP 104/67; PULSE 64; RESP 20
== END 2024-05-05 13:04 | disposition home or self-care (01) ==
LOC: EC 11:06
DX: S00.83XA Contusion of other part of head, initial encounter (principal); F17.290 Nicotine dependence, other tobacco product, uncomplicated; Z88.5 Allergy status to narcotic agent; V89.2XXA Person injured in unspecified motor-vehicle accident, traffic, initial encounter; Y92.410 Unspecified street and highway as the place of occurrence of the external cause
CPT/HCPCS: 70450; 70486; 72125; 99284

== ENCOUNTER → 2024-07-26 | Outpatient (CLI) | payer OTHER ==
[2024-07-26 13:53] VITALS: BP 112/61; PULSE 60; RESP 16; TEMP 98; BMI 25.6
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
== END ==
LOC: BARWHC3 13:22
PROVIDERS: ATTEND Surgery
DX: E66.01 Morbid (severe) obesity due to excess calories (principal); K59.04 Chronic idiopathic constipation; Z68.25 Body mass index [BMI] 25.0-25.9, adult; Z88.5 Allergy status to narcotic agent
CPT/HCPCS: 99211